=== PATIENT | female | born 1950 | race Asian ===

== ENCOUNTER 2017-09-26 20:12 | Inpatient (IN) | payer SELFPAY ==
[2017-09-26 21:03] LABS: #Eosinphils 0.4 thou/uL (0.0-0.7); #Lymphocytes 1.6 thou/uL (1.20-3.40); #Monocytes 0.4 thou/uL (0.11-0.59); #Neutrophils 5.9 thou/uL (1.40-6.50); %Basophils 0.6 % (0.0-1.0); %Eosinophils 4.3 % (0.0-10.0); %Lymphocytes 19.1 % (21.0-51.0); %Monocytes 4.5 % (0.0-10.0); %Neutrophils 71.5 % (42.0-75.0); Hemoglobin 9.9 g/dL (12.0-16.0); Mean Corpuscular HGB CONC 31.7 g/dL (32.0-36.0); Mean Corpuscular Hemoglobin 31.5 pg (27.0-31.0); Mean Corpuscular Volume 99.1 fl (81.0-99.0); Mean Platelet Volume 7.7 fL (7.4-10.4); Platelet Count 135 thou/uL (130-400); RBC Distribution Width 11.2 % (11.5-14.5); Red Blood Cell (RBC) Count 3.16 mill/uL (4.20-5.40); White Blood Cell (WBC) Count 8.2 thou/uL (4.8-10.8)
[2017-09-26] MEDS ORDERED: Albuterol Sulfate 2.5 mg/0.5 ml Neb ONE (21:12)
[2017-09-26 21:24] LABS: ALT (SGPT) 8 U/L (8-55); AST (SGOT) 9 U/L (5-34); Albumin 1.7 g/dL (3.4-4.8); Alkaline Phosphatase 29 U/L (40-150); Anion Gap 9 mmol/L (10-20); BUN (Urea Nitrogen) 9 mg/dL (9.8-20.1); Bilirubin, Total Less than 0.2 mg/dL (0.2-1.2); Calc. Creatinine Clearance 0 mL/min (70-130); Carbon Dioxide 13 mmol/L (23-31); Chloride 125 mmol/L (98-107); Estimated GFR-MDRD Greater than 90; Globulin 1.4 g/dL (2.4-3.5); Glucose 110 mg/dL (80-115); Protein, Total 3.1 g/dL (6.0-8.3); Sodium 145 mmol/L (136-145)
[2017-09-26 21:26] LABS: Calcium 4.4 mg/dL (7.8-10.44); Potassium 1.9 mmol/L (3.5-5.1)
[2017-09-26 21:28] LABS: CKMB 0.8 ng/mL (0-6.6); Troponin I Less than 0.010 ng/mL (< 0.028)
--- NOTE | 2017-09-26 21:33 | RAD ---
CHEST ONE VIEW 09/26/17 COMPARISON: 02/17/16 HISTORY: Wheezing. FINDINGS: Portable upright chest demonstrates a normal cardiac silhouette. Pulmonary vessels and hilum are norm al. Costophrenic angles are clear. Lungs are hyperinflated. There are chronic changes. No consolidati on or mass. No pneumothorax or osseous abnormalities. IMPRESSION: Hyperinflation with chronic changes. No acute process. POS: [facility]
[2017-09-26] MEDS ORDERED: Potassium Chloride 20 MEQ TAB ONE (21:39)
[2017-09-26 21:42] LABS: Magnesium 1.4 mg/dL (1.6-2.6)
[2017-09-26 21:44] LABS: Phosphorus 1.9 mg/dL (2.3-4.7)
[2017-09-26] MEDS ORDERED: Potassium Chloride 40 MEQ in Sodium Chloride 0.9% 500 ML IVPB SCH (21:45)
[2017-09-26] MEDS ORDERED: Albuterol Sulfate 1.25 MG/3 ML NEB ONE (21:59)
[2017-09-26] MEDS ORDERED: Sodium Chloride For Inhalation 0.9% 3 ML NEB ONE (22:00)
[2017-09-26 22:43] LABS: ALT (SGPT) 19 U/L (8-55); AST (SGOT) 18 U/L (5-34); Albumin 3.9 g/dL (3.4-4.8); Alkaline Phosphatase 62 U/L (40-150); Anion Gap 14 mmol/L (10-20); BUN (Urea Nitrogen) 13 mg/dL (9.8-20.1); Bilirubin, Total 0.3 mg/dL (0.2-1.2); Calc. Creatinine Clearance 0 mL/min (70-130); Calcium 8.4 mg/dL (7.8-10.44); Carbon Dioxide 24 mmol/L (23-31); Chloride 106 mmol/L (98-107); Estimated GFR-MDRD 77; Globulin 3.4 g/dL (2.4-3.5); Glucose 197 mg/dL (80-115); Magnesium 2.6 mg/dL (1.6-2.6); Phosphorus 3.1 mg/dL (2.3-4.7); Potassium 3.4 mmol/L (3.5-5.1); Protein, Total 7.3 g/dL (6.0-8.3); Sodium 141 mmol/L (136-145)
--- NOTE | 2017-09-26 23:41 | RAD ---
EXAM TWO VIEWS SOFT TISSUE NECK 09/26/17 HISTORY: Stridor. Asthma flare up. Inhaler is not working. COMPARISON: None. FINDINGS: No prevertebral soft tissue swelling. Epiglottis has a normal caliber. Aerodigestive tract is patent. There is mild fullness at the tongue base possibly due to lingual tonsillar hypertrophy. IMPRESSION: 1. Patient aerodigestive tract. 2. Normal caliber epiglottis. 3. No prevertebral soft tissue swelling. POS: [facility]
[2017-09-27] MEDS ORDERED: HYDROcodone/Acetaminophen 10/325 mg Tablet PO PRN (02:30)
[2017-09-27] MEDS ORDERED: Albuterol Sulfate 2.5 mg/3 ml Neb NEB PRN (02:30)
[2017-09-27] MEDS ORDERED: HYDROcodone/Acetaminophen 5/325 mg Tablet PO PRN (02:30)
[2017-09-27] MEDS ORDERED: Acetaminophen 325 MG TAB PO PRN (02:30)
[2017-09-27] MEDS ORDERED: Enoxaparin Sodium 40 MG/0.4 ML SYRINGE SC SCH (02:45)
[2017-09-27] MEDS: methylPREDNISolone Sod Succ/PF 125 MG/2 ML VIAL IVP SCH ×4 (02:50→20:57)
[2017-09-27 03:51] LABS: Actual Bicarbonate (HCO3a) 21.2 mEq/L (22-26); Base Excess (BEa) -8.3 mEq/L (0 (+/-) 2.5); Calcium, Ionized 1.2 mmol/L (1.12-1.30); Hemoglobin (Hb) 15.2 g/dL (12.0-16.0); O2 Tension (PaO2) 116.3 mmHg (80.0-100.0)
[2017-09-27 03:58] LABS: CO2 Tension 60.1 mmHg (35.0-45.0); pH, Arterial 7.17 (7.35-7.45)
[2017-09-27 03:59] LABS: ALV-art Gradient 74.235 (0-20); Puncture Site RRA
[2017-09-27 04:28] LABS: Actual Bicarbonate (HCO3a) 20.4 mEq/L (22-26); Base Excess (BEa) -7.9 mEq/L (0 (+/-) 2.5); CO2 Tension 52.3 mmHg (35.0-45.0); Calcium, Ionized 1.2 mmol/L (1.12-1.30); Hematocrit-ABG 49.4 % (36.0-47.0); Hemoglobin (Hb) 15.2 g/dL (12.0-16.0); O2 Tension (PaO2) 113.7 mmHg (80.0-100.0)
[2017-09-27 04:32] LABS: Puncture Site RRA; pH, Arterial 7.21 (7.35-7.45)
[2017-09-27 04:33] LABS: ALV-art Gradient 86.585 (0-20)
[2017-09-27] MEDS: Ondansetron HCl/PF 4 MG/2 ML Vial IVP PRN ×2 (04:39→10:44)
[2017-09-27 04:51] VITALS: BMI 19.5
--- NOTE | 2017-09-27 05:59 | HP ---
DATE OF ADMISSION: 09/26/2017 TIME OF SERVICE: 2145 hours. PRIMARY CARE PHYSICIAN: None. CHIEF COMPLAINT: Shortness of breath. HISTORY OF PRESENT ILLNESS: Ms. Reagan is a 67-year-old, female with acute onset of increased work of breathing and shortness of breath this afternoon. She had taken some albuterol inhaler at home, it was not helping, her left side of her chest felt tight. EMS was activated. On their arrival, it was 85% on room air. She got a 125 of Solu-Medrol, DuoNeb x3, 2 grams of magnesium and 0.3 of epinephrine en route. On arrival, she is still having significant respiratory sounds. Labs in the ER showed electrolytes to be completely abnormal, redraw of those showed that they were all be completely normal. We were called for admission for asthma exacerbation. On my arrival, the patient was audibly wheezing. Exam revealed upper respiratory high pitched wheezes on exploration with prolonged expiratory phase , with intermittent sounds down the lungs. She states she is swallowing okay. No fevers or chills, no nausea or vomiting. PAST MEDICAL HISTORY: 1. Asthma. 2. Heart problems, she cannot elucidate on. PAST SURGICAL HISTORY: Include appendectomy was done as a child. HOME MEDICATIONS: 1. Albuterol MDI. 2. Albuterol nebs as needed. ALLERGIES: NKDA. FAMILY HISTORY: Negative for clotting or bleeding disorders, no immune dysfunction. SOCIAL HISTORY: Negative for habits x3. She is . Her did accompany her. She is a FULL [employer] and he is her surrogate decision maker should there be any problems. REVIEW OF SYSTEMS: A 10-point review of systems was performed, negative for all other systems except stated as per HPI. PHYSICAL EXAMINATION: VITAL SIGNS: Temperature 97.7, pulse 130, blood pressure 142/102, respiratory rate 26, satting 97% on 2 liters, 100% on BiPAP 12/5. GENERAL: She is awake. She is alert. She is oriented x3. She is in moderate respiratory distress. HEENT: Normocephalic and atraumatic, no nasal flaring. Mucous membranes are moist. BiPAP mask is currently in place. NECK: Supple, without lymphadenopathy, JVD, or thyromegaly, she had normal carotid upstrokes. She does have an episode of her upper expiratory wheezes sound is in the throat. She has a prolonged expiratory phase and is using accessory muscles to . LUNGS: Themselves are clear with adequate air movement. Symmetric chest excursion. She has transmitted upper airway sounds down into her lung gibbs. I do not here any abnormal lung sounds of her own. CARDIOVASCULAR: She is tachycardic, regular. Normal S1, S2. I do not appreciate murmurs. ABDOMEN: Soft, it is nontender and nondistended, no masses, no organomegaly, no R/R/G. EXTREMITIES: No cyanosis, no clubbing, no edema, 2+ peripheral pulses. SKIN: Warm, moist, and well perfused without any rashes or lesions. MUSCULOSKELETAL: Exam was normal. She has no inflammation or palpable effusions. NEUROLOGIC: Nonfocal. She has 5/5 strength, normal speech pattern. Intact cranial nerves, and she is alert and oriented x3. LABORATORY EVALUATION: Initially showed a potassium of 1.9, bicarbonate 13, magnesium of 1.4, phosphorus 1.9, and albumin of 1.7. Repeat showed her labs to be completely normal except for potassium barely low at 3.4. Magnesium was 2.6, phosphorus 3.1. Creatinine 0.75. BNP was 22.3. Troponin I 0.010. Mag of 0.8. Her initial calcium of 4.4, redone was 8.9. CBC showed a white count of 8.2, hemoglobin 9.9, hematocrit 31.3, and platelet count of 135,000. Unsure if these are accurate or not. Chest x-ray showed hyperinflation with no acute disease. ASSESSMENT AND PLAN: 1. Stridor, suspect possible epiglottitis. We will get lateral neck film. The patient is currently on BiPAP and breathing much more comfortably. We will schedule racemic epinephrine nebs q.6 hours, DuoNebs q.4 hours and albuterol q.2 hours p.r.n. She got a 125 of Solu-Medrol on transport, we will continue 60 mg IV q.6 hours tonight, and we will decrease the dose tomorrow. I spoke with Dr. Hernandez of Pulmonary Critical Care as he is aware she is here. If she gets worse, then we may need to intubate. 2. History of asthma: Seems to be inactive at this point. Treatment will cover as above. 3. We will start her on Levaquin 750 mg IV q.24 hours and titrate oxygen to her needs. Electrolyte abnormalities on presentation deemed not real. Repeat draw showed them to be all normal. We will repeat in the morning. MTDD
[2017-09-27 06:10] LABS: Anion Gap 19 mmol/L (10-20); BUN (Urea Nitrogen) 13 mg/dL (9.8-20.1); Calc. Creatinine Clearance 51 mL/min (70-130); Calcium 8.8 mg/dL (7.8-10.44); Carbon Dioxide 21 mmol/L (23-31); Chloride 106 mmol/L (98-107); Estimated GFR-MDRD 68; Glucose 293 mg/dL (80-115); Magnesium 2.3 mg/dL (1.6-2.6); Potassium 4.9 mmol/L (3.5-5.1); Sodium 141 mmol/L (136-145)
[2017-09-27 06:28] LABS: CKMB 9.4 ng/mL (0-6.6); Troponin I 1.107 ng/mL (< 0.028)
[2017-09-27] MEDS ORDERED: FLU VACC TS2017-18 (>65YR) 0.5 ML SYRINGE IM ONE (09:00)
[2017-09-27] MEDS ORDERED: Famotidine/PF 20 mg/2ml Vial SLOW IVP SCH (09:00)
[2017-09-27] MEDS: Famotidine 40 MG/4 ML VIAL SLOW IVP SCH ×2 (10:46→20:57)
[2017-09-27] MEDS ORDERED: Midazolam HCl 2 mg/2 ml Vial ONE (12:49)
[2017-09-27] MEDS: Sodium Chloride 0.9% 1,000 ML IV SCH ×2 (13:05→22:50)
[2017-09-27] MEDS ORDERED: Propofol 1,000 MG/100 ML VIAL IV ONE (13:18)
[2017-09-27] MEDS ORDERED: Lorazepam 2 MG/ML VIAL ONE (13:22)
[2017-09-27 13:23] LABS: Hemoglobin 15.8 g/dL (12.0-16.0); Red Blood Cell (RBC) Count 5.23 mill/uL (4.20-5.40); White Blood Cell (WBC) Count 12.7 thou/uL (4.8-10.8)
[2017-09-27 13:24] LABS: #Lymphocytes 0.8 thou/uL (1.20-3.40); #Monocytes 0.2 thou/uL (0.11-0.59); #Neutrophils 11.7 thou/uL (1.40-6.50); %Basophils 0.1 % (0.0-1.0); %Eosinophils 0.1 % (0.0-10.0); %Lymphocytes 6.1 % (21.0-51.0); %Monocytes 1.6 % (0.0-10.0); Mean Corpuscular HGB CONC 30.5 g/dL (32.0-36.0); Mean Corpuscular Hemoglobin 30.2 pg (27.0-31.0); Mean Corpuscular Volume 99.1 fL (81.0-99.0); Platelet Count 221 thou/uL (130-400); RBC Distribution Width 11.6 % (11.5-14.5)
[2017-09-27 14:27] LABS: Actual Bicarbonate (HCO3a) 19.7 mEq/L (22-26); Base Excess (BEa) -6.8 mEq/L (0 (+/-) 2.5); CO2 Tension 42.8 mmHg (35.0-45.0); Calcium, Ionized 1.2 mmol/L (1.12-1.30); Hematocrit-ABG 44.5 % (36.0-47.0); Hemoglobin (Hb) 14.2 g/dL (12.0-16.0); O2 Tension (PaO2) 123.5 mmHg (80.0-100.0); pH, Arterial 7.28 (7.35-7.45)
[2017-09-27 14:28] LABS: Puncture Site RRA
[2017-09-27] MEDS: Sodium Chloride 0.9% 2,000 ML IV SCH ×2 (15:25→16:28)
--- NOTE | 2017-09-27 18:51 | PRG ---
DATE OF SERVICE: 09/27/2017 SUBJECTIVE: The patient is seen and examined at the bedside. She is in CCU C12 bed. She is intubat ed and sedated. OBJECTIVE: VITAL SIGNS: Blood pressure is 93/65. MAP is 75, heart rate is 109, respiratory rate is 17, O2 satu ration 95%. She is on FIO2 of 35. Blood pressure is 137/82, pulse is 128, PEEP is 5, pressure suppo rt is 10, frequency is 14. HEENT: Her pupils are responding to light properly, slightly sluggish. Conjunctivae pinkish. She i s orally intubated. LUNGS: Somewhat diminished at both bases. No obvious wheezing. HEART: S1, S2, tachycardic, no S3, no S4. ABDOMEN: Soft, nondistended. EXTREMITIES: No clubbing, cyanosis, or edema. NEUROLOGIC: Postponed since she is sedated. LABORATORY DATA: Showed a white count of 12.7, hemoglobin 15.8, hematocrit 51.8, platelet count is 2 21,000. ABG: pH is 7.21, pCO2 of 52.3, pO2 is 113.7. The next ABGs showed improvement with pH of 7 .28, pO2 of 123.5 and pCO2 of 42.8. Sodium is 141, potassium 4.9, chloride 106, CO2 of 21, BUN is 13 , glucose is 293, magnesium 2.3. CK is 9.4. Troponin I 1.107. Chest x-ray was done yesterday shows hyperinflation with chronic changes, no acute abnormality and the soft tissue of the neck x-ray show ed normal caliber epiglottitis. No prevertebral soft tissue swelling. Her aerodigestive tract was p atent. IMPRESSION: 1. Hypoxemic respiratory failure. 2. History of asthma. It is not clear whether there is some infectious process going on in her lung s which triggered her hypoxemia and hypercapnia and respiratory failure, most likely there is one. T he patient is on a methylprednisolone 60 mg q.6 h. IV push. Also she is on levofloxacin 750 mg q.24 hours. We will continue both of them. The patient was seen by Dr. Waller, Pulmonary/Critical Care sp ecialist. We are awaiting for his recommendations. We will continue her on mechanical ventilation. We will continue her deep venous thrombosis and peptic ulcer disease prophylaxis.
[2017-09-27] MEDS ORDERED: Famotidine 40 MG/4 ML VIAL SLOW IVP SCH (21:00)
[2017-09-27] MEDS ORDERED: Benzocaine 20% Spray 60 ML CAN ONE (21:05)
[2017-09-27] MEDS ORDERED: Sedation Protocol FS ONE (21:52)
[2017-09-27] MEDS ORDERED: Morphine 2 MG/ML SYRINGE SLOW IVP PRN (21:56)
[2017-09-27] MEDS ORDERED: Lorazepam 2 MG/ML VIAL SLOW IVP PRN (21:56)
[2017-09-27] MEDS ORDERED: DISCONTINUE PREVIOUS NARCOTIC PAIN MEDICATIONS AND BENZODIAZEPINES FS SCH (21:56)
[2017-09-27] MEDS ORDERED: Magnesium Sulfate 3 GM in Sodium Chloride 0.9% 100 ML IVPB SCH (22:00)
[2017-09-28] MEDS: methylPREDNISolone Sod Succ/PF 125 MG/2 ML VIAL IVP SCH ×4 (03:52→21:20)
--- NOTE | 2017-09-28 05:44 | CON ---
DATE OF CONSULTATION: 09/27/2017 HISTORY OF PRESENT ILLNESS: Ms. Reagan is known to me. She has a history of severe asthma. She has been intubated in the past. She presented with respiratory distress, was unable to speak and was showing signs of fatigue on BiPAP, I was consulted. She is unable to give much of her history because of respiratory distress. PAST MEDICAL HISTORY: 1. Remarkable for an appendectomy. 2. I believe intubation by me in 2013. 3. Long history of asthma with history of ventilation 2009 and in 2013. 4. History of takotsubo cardiomyopathy. 5. History of obstructive lung disease reportedly, but I believe more what she has been is asthma al carlitos. 6. History of medical noncompliance in the distant past because lack of funds. SOCIAL HISTORY: She is a non-smoker, nondrinker. ALLERGIES: No history of drug use. ALLERGIES: She has no reported drug allergies. FAMILY HISTORY: Negative for lung disease in early age. REVIEW OF SYSTEMS: Otherwise, unremarkable other than the above, shortness of breath as her only com plaint and that is all she can really say. PHYSICAL EXAMINATION: VITAL SIGNS: Heart rate was 114, blood pressure 101/70, respiratory rate was in the teens. She is o n noninvasive, oximetry is 98. HEENT: Pupils are equal. Sclerae is anicteric. NECK: Supple. She nodded that she was agreeable to intubation. LUNGS: Remarkable for distant breath sounds, long expiratory phase. HEART: Regular rhythm, no S3. ABDOMEN: Soft. EXTREMITIES: With asymmetry. LABORATORY DATA: White count 12.7, hemoglobin 15.8, hematocrit 51, platelets 221. Sodium 141, potassium 4.9, chloride 106, bicarbonate 21, BUN 13, creatinine 0.84, glucose 293. IMPRESSION: 1. Respiratory failure and pending. 2. Status asthmaticus severe. 3. Muscle fatigue. 4. Hypoalbuminemia, it is unclear whether or not this is actually artifactual because her albumin ye evening was 1.7 and then an hour later it was 3.9. Her total protein was 3.1 and went on rep eat was 7.3, making me believe that this was drawn up stream from an IV. Her potassium was also 1.9 and went to 3.4 an hour later. Chloride was 125 and went to 106. All these things argue that the bl ood was drawn above on IV. She eventually needs intubation, she agreed to this and this has been don e successfully. The intubation will be dictated in a separate report. She will require sedation, IV fluids, and she is, in my estimation, extremely still volume contracted, this will help facilitate m ucociliary clearance as well. She will need steroids. She will need IV magnesium, I would agree wit h empiric antimicrobial therapy, although I would try to keep it limited to 1 antimicrobial agents an d she has no alveolar infiltrates on her radiograph. Her radiographs have been reviewed by me. I wi ll continue to follow her. Critical care time 30 minutes independent of procedures.
--- NOTE | 2017-09-28 06:18 | OP ---
DATE: 09/27/2017 PROCEDURE: Fiberoptic intubation with bronchoscopy. CLEANING SUPERVISOR: Adelso Waller M.D. INDICATION: Respiratory failure, to facilitate clearance of secretions. She had a bite block placed in her mouth. Throat was sprayed with Hurricaine [place]. Versed was at [facility] bedside, to be used once she was intubated, She was easily intubated using a fiberoptic scope. [facility] bronchoscope showed normal cords. Her trachea was normal except for retained thick white secretio ns. Endotracheal tube was secured above her main nelia, 7.5. Right lower lobe, right upper lobe, r ight middle lobe, left lower lobe, left upper lobe were visualized. No endobronchial lesions were se en. Retained clear white secretions were suctioned until clear. She tolerated the procedure well. There was no hypoxemia or vital sign changes during intubation.
[2017-09-28] MEDS: Propofol 1,000 MG/100 ML VIAL IV PRN ×2 (07:21→16:44)
[2017-09-28 07:25] LABS: Actual Bicarbonate (HCO3a) 24.5 mEq/L (22-26); Base Excess (BEa) -1.5 mEq/L (0 (+/-) 2.5); CO2 Tension 46.4 mmHg (35.0-45.0); Calcium, Ionized 1.2 mmol/L (1.12-1.30); Hematocrit-ABG 35.2 % (36.0-47.0); Hemoglobin (Hb) 11.5 g/dL (12.0-16.0); O2 Tension (PaO2) 115.6 mmHg (80.0-100.0); pH, Arterial 7.34 (7.35-7.45)
[2017-09-28 07:32] LABS: Puncture Site RRA
[2017-09-28 07:51] LABS: #Lymphocytes 1.2 thou/uL (1.20-3.40); #Monocytes 0.6 thou/uL (0.11-0.59); %Basophils 0.1 % (0.0-1.0); %Eosinophils 0.1 % (0.0-10.0); %Lymphocytes 7.8 % (21.0-51.0); %Monocytes 4.3 % (0.0-10.0); %Neutrophils 87.8 % (42.0-75.0); Mean Corpuscular HGB CONC 31.2 g/dL (32.0-36.0); Mean Corpuscular Hemoglobin 30.7 pg (27.0-31.0); Mean Corpuscular Volume 98.5 fl (81.0-99.0); Mean Platelet Volume 7.8 fL (7.4-10.4); Platelet Count 171 thou/uL (130-400); RBC Distribution Width 11.5 % (11.5-14.5); Red Blood Cell (RBC) Count 4.22 mill/uL (4.20-5.40); White Blood Cell (WBC) Count 14.8 thou/uL (4.8-10.8)
[2017-09-28 08:08] LABS: Anion Gap 10 mmol/L (10-20); BUN (Urea Nitrogen) 18 mg/dL (9.8-20.1); Calc. Creatinine Clearance 61 mL/min (70-130); Calcium 8.2 mg/dL (7.8-10.44); Carbon Dioxide 24 mmol/L (23-31); Chloride 111 mmol/L (98-107); Estimated GFR-MDRD 83; Glucose 161 mg/dL (80-115); Potassium 4.4 mmol/L (3.5-5.1); Sodium 141 mmol/L (136-145)
--- NOTE | 2017-09-28 08:33 | RAD ---
CHEST ONE VIEW: History: 67-year-old female with respiratory failure. Comparison: 09-26-17 FINDINGS: NG tube and endotracheal tubes remain in satisfactory location. There is some hyperinflation and continuous improvement director cristina changes noted bilaterally with biapical pleural thickening without confluent pneumonia, overt franck ma, or other acute process. IMPRESSION: Stable chronic changes. POS: [facility]
[2017-09-28] MEDS: Famotidine 40 MG/4 ML VIAL SLOW IVP SCH ×2 (08:53→21:57)
[2017-09-28] MEDS: Enoxaparin Sodium 40 MG/0.4 ML SYRINGE SC SCH (08:54)
[2017-09-28] MEDS: Sodium Chloride 0.9% 1,000 ML IV SCH ×2 (08:58→18:34)
--- NOTE | 2017-09-28 12:49 | PRG ---
DATE OF SERVICE: 09/28/2017 SUBJECTIVE: Ms. Reagan appears to be comfortable, mechanically ventilated. OBJECTIVE: VITAL SIGNS: She is afebrile, heart rate 120, blood pressure 95/53, respiratory rate in the teens. She still has a very long expiratory phase. HEART: Regular rhythm. ABDOMEN: Soft. LABORATORY DATA: White count 14.8, hemoglobin 13, platelets 171. Sodium 141, potassium 4.4, chloride 111, bicarbonate 24, BUN 18, creatinine 0.7, pH 7.34, CO2 46, pO2 115. IMPRESSION: Respiratory failure associated with status asthmaticus. PLAN: She failed noninvasive ventilation and was intubated by me yesterday. She appears to be stabl e. She still has a resting tachycardia and a long expiratory phase, all linked to her asthma. We wi ll continue to treat her aggressively with nebulizer treatments, steroids, IV hydration. Critical care time was 30 minutes.
[2017-09-28] MEDS: Ondansetron HCl/PF 4 MG/2 ML Vial IVP PRN (18:31)
--- NOTE | 2017-09-28 20:30 | PRG ---
DATE OF SERVICE: 09/28/2017 SUBJECTIVE: The patient is seen and examined at bedside. She is sedated and intubated. She is seen in CCU bed 12. OBJECTIVE: VITAL SIGNS: Her blood pressure is 96/58, pulse is 98, respiratory rate is 17, and pulse oximetry is 95%. The ventilator setting is SIMV with frequency of 14, tidal volume 330, FiO2 of 35%, PEEP of 5. 0, pressure support of 10. She has a Koch catheter in place. Her urine output total for 24 hours i s 1300, intake is 3714, so balance is positive for 2414. LUNGS: Her lungs sound without any significant wheezing or rales. HEART: S1, S2 normal. ABDOMEN: Soft, nondistended. EXTREMITIES: No clubbing, cyanosis, or edema. NEUROLOGIC: Not done since the patient is under influence of sedative. LABORATORY DATA: Labs showed white count of 14.8, hemoglobin 13, hematocrit 41.6, and platelet count is 171. Blood gases showed pH of 7.34, pCO2 of 46, and pO2 of 115.6. Sodium of 141, potassium 4.4, chloride 111, CO2 is 24, BUN is 18, creatinine 0.7. Glucose is ranging from 161 to 293. Her tropon in is up to 1.1 from less than 0.01. CK-MB is up to 9.4 from 9.8. The rest of chemistry showed a ma gnesium of 2.3. Chest x-ray did not show any acute new process. She has some chronic biapical pleur al thickening without confluent pneumonia. Those are chronic changes. IMPRESSION: 1. Status asthmaticus, status post intubation and she is receiving mechanical ventilation. 2. Hypoxemic respiratory failure secondary to status asthmaticus. PLAN: To continue her IV steroids; IV nebulizers; and IV antibiotic, which is levofloxacin. Continu e DuoNeb and continue supportive care in critical care unit.
[2017-09-29] MEDS: methylPREDNISolone Sod Succ/PF 125 MG/2 ML VIAL IVP SCH ×4 (03:53→21:27)
[2017-09-29] MEDS: Sodium Chloride 0.9% 1,000 ML IV SCH (08:07)
[2017-09-29] MEDS: Enoxaparin Sodium 40 MG/0.4 ML SYRINGE SC SCH (08:22)
[2017-09-29] MEDS: Famotidine 40 MG/4 ML VIAL SLOW IVP SCH (08:28)
[2017-09-29] MEDS: Propofol 1,000 MG/100 ML VIAL IV PRN (08:32)
[2017-09-29 13:43] LABS: Troponin I 0.458 ng/mL (< 0.028)
[2017-09-29] MEDS ORDERED: Pancrelipase DR 12000 1 CAP FS PRN (13:59)
[2017-09-29] MEDS ORDERED: Sodium Bicarbonate Tab 325 MG TAB PER TUBE PRN (13:59)
--- NOTE | 2017-09-29 14:02 | PRG ---
DATE OF SERVICE: 09/29/2017 SERVICE: Pulmonary Medicine. INTERVAL HISTORY: The patient is doing really well from a respiratory standpoint. She continues to demonstrate fairly significant expiratory airflow limitation. That being said, she has made a marked improvement compared to yesterday. She indicates she is breathing comfortably. She denies any curr ent fevers or chills. She has fairly significant secretions, but demonstrates a very vigorous cough. HEENT: Normocephalic, atraumatic. Sclerae are white, conjunctivae pink. Oral mucosa is moist witho ut lesions. LUNGS: Excellent air entry. There is a prolonged expiratory phase and polyphonic wheezing. Rhonchi are present, but changed with cough. HEART: Tachycardic, regular. ABDOMEN: Soft, nontender, nondistended. Bowel sounds are positive. MUSCULOSKELETAL: No cyanosis or clubbing. No pitting in the bilateral lower extremities. NEUROLOGIC: Grossly nonfocal. LABORATORY DATA: WBC 14.8, hemoglobin 13.0, platelets 171,000. A pH 7.34, pCO2 46, and pO2 115. Ba sic metabolic profile is essentially unremarkable. Sodium 141, chloride 111. Creatinine is normal a t 0.7. Troponin is up trending to 1.107. ASSESSMENT: 1. Acute hypoxic and hypercapnic respiratory failure. 2. Asthma with acute exacerbation. 3. Unknown heart issues. PLAN: We will repeat a troponin. If the troponin is up trending, Cardiology consultation will be ob tained. We will put on a spontaneous breathing trial just to see how she looks after 30 minutes. If she looks fantastic, extubation will be considered, but more than likely, she will be maintained on mechanical ventilation for the next 24 hours. She continues to have a very extensive prolonged expir atory phase.
--- NOTE | 2017-09-29 18:17 | PRG ---
DATE OF SERVICE: 09/29/2017 SUBJECTIVE: The patient was seen and examined at the bedside. She is still intubated. Her family i s at the bedside. Apparently, she might be extubated tomorrow, she was told. PHYSICAL EXAMINATION: VITAL SIGNS: Blood pressure is 90/57, pulse is 108, respiratory rate is 14, pulse oximetry is 93%. She is on a ventilator as mentioned above. HEENT: Eyes are PERRLA. LUNGS: Bilateral wheezes present upper and lower parts, both lungs. HEART: S1, S2. Somewhat tachycardic. No S3, no S4. ABDOMEN: Soft and nontender. Bowel sounds are present. EXTREMITIES: No clubbing, cyanosis, or edema. NEUROLOGIC: She follows my command. She understands. She is able to move all 4 extremities. There are no focal deficits at present. LABORATORY DATA: None today. IMPRESSION: 1. Acute respiratory failure. 2. Exacerbation of asthma, requiring intubation. PLAN: To continue current regimen with mechanical ventilation with IV steroids, high dose; and Luís buchanan and most likely she would be extubated tomorrow.
[2017-09-29] MEDS: Famotidine/PF 20 mg/2ml Vial SLOW IVP SCH (21:27)
[2017-09-30] MEDS: methylPREDNISolone Sod Succ/PF 125 MG/2 ML VIAL IVP SCH ×2 (04:36→09:46)
[2017-09-30] MEDS: Propofol 1,000 MG/100 ML VIAL IV PRN (09:46)
[2017-09-30] MEDS: Famotidine/PF 20 mg/2ml Vial SLOW IVP SCH (09:46)
[2017-09-30] MEDS: Enoxaparin Sodium 40 MG/0.4 ML SYRINGE SC SCH (09:46)
--- NOTE | 2017-09-30 12:33 | PRG ---
DATE OF SERVICE: 09/30/2017 SERVICE: Pulmonary Medicine. INTERVAL HISTORY: The patient is doing really quite well from a respiratory standpoint. She is ronald thing comfortably. She has no current fevers, chills, nausea, vomiting, or chest discomfort. She is currently on mechanical ventilation and her expiratory airflow limitation has significantly improved . She denies any current fevers or chills. PHYSICAL EXAMINATION: VITAL SIGNS: Afebrile, pulse 105, blood pressure 65/57, respirations 18, saturation 92% on room air. GENERAL: Patient is awake, alert, in no apparent distress. LUNGS: Excellent air entry. There is a prolonged expiratory phase, but the wheezing and crackles ar e much improved. HEART: Normal rate, regular. ABDOMEN: Soft, nontender, nondistended. Bowel sounds are positive. MUSCULOSKELETAL: No cyanosis or clubbing. No pitting in the bilateral lower extremities. GENITOURINARY: Koch catheter in place. NEUROLOGIC: Grossly nonfocal. LABORATORY DATA: Basic metabolic profile is completely unremarkable. Troponin is down trending 0.45 . ASSESSMENT: 1. Acute hypoxic and hypercapnic respiratory failure. 2. Status asthmaticus, improving. 3. Heart issues. 4. Non-ST elevation myocardial infarction. PLAN: We will continue on spontaneous breathing trial. We are going to proceed with extubation if s he meets criteria at the end of 30 minutes. I will check on her multiple times in this period of mi e. Critical care time: 30 minutes.
--- NOTE | 2017-09-30 16:29 | PDOC.PN ---
- Subjective Encounter Start Date: 09/30/17 Encounter Start Time: 11:40 Pt seen for followup re: acute respiratory failure. Nonverbal but answering questions by nodding or shaking head. Denies chest pain, shortness of breath. - Objective Resuscitation Status: Resuscitation Status FULL:Full Resuscitation MAR Reviewed: Yes Vital Signs & Weight: Vital Signs (12 hours) Temp Pulse Resp BP Pulse Ox 09/30/17 15:20 109 H 21 H 96 09/30/17 12:00 98.3 F 16 09/30/17 11:57 105 H 96/57 L 09/30/17 10:00 16 09/30/17 08:08 107 H 86/56 L 09/30/17 08:00 98.2 F 105 H 14 96 09/30/17 07:00 98.2 F Weight Admit Weight 110 lb Weight 110 lb Most Recent Monitor Data Heart Rate from ECG 107 NIBP 104/63 NIBP BP-Mean 77 Respiration from ECG 14 SpO2 96 I&O: 09/29/17 09/30/17 10/01/17 06:59 06:59 06:59 Intake Total 2585.6 634 361 Output Total 990 1045 390 Balance 1595.6 -411 -29 Result Diagrams: 09/28/17 07:39 09/28/17 07:39 EKG Reviewed by me: Yes (Tele: NSR) Phys Exam - Physical Examination Constitutional: NAD ETT+ Neck: supple Respiratory: clear to auscultation bilateral Cardiovascular: RRR Gastrointestinal: soft Neurological: moves all 4 limbs Psychiatric: normal affect Dx/Plan (1) Acute respiratory failure Code(s): J96.00 - ACUTE RESPIRATORY FAILURE, UNSP W HYPOXIA OR HYPERCAPNIA Status: Acute (2) Elevated troponin Code(s): R74.8 - ABNORMAL LEVELS OF OTHER SERUM ENZYMES Status: Acute (3) Asthma Code(s): J45.909 - UNSPECIFIED ASTHMA, UNCOMPLICATED Status: Chronic - Plan * . Continue steroids, bronchodilators. On spontaneous breathing trial. Demand ischemia vs NSTEMI. Follow 2D echo result. If significant abnormalities, consult cardiology. Review of Systems - Review of Systems Respiratory: negative: Cough, Dry, Shortness of Breath, Hemoptysis, SOB with Excertion, Pleuritic Pain, Sputum, Wheezing Cardiovascular: negative: chest pain, palpitations, orthopnea, paroxysmal nocturnal dyspnea, edema, light headedness - Medications/Allergies Allergies/Adverse Reactions: Allergies Allergy/AdvReac Type Severity Reaction Status Date / Time No Known Allergies Allergy Verified 09/27/17 05:05 Medications: Current Medications Acetaminophen (Tylenol) 650 mg PO Q4H PRN PRN Reason: Headache/Fever or Pain Albuterol Sulfate (Ventolin) 2.5 mg NEB Q2H PRN PRN Reason: Wheezing Albuterol/Ipratropium (Duoneb) 3 ml NEB [id number] [facility] Last Admin: 09/30/17 15:20 Dose: 3 ml Lipase/Protease/Amylase ([place] [id number]) 1 cap FS .PER PROTOCOL PRN PRN Reason: TUBE OCCLUSION PROTOCOL Enoxaparin Sodium (Lovenox) 40 mg SC 0900 [facility] Last Admin: 09/30/17 09:46 Dose: 40 mg Levofloxacin 750 mg/ Device 150 mls @ 100 mls/hr IVPB 0300 [facility] Last Admin: 09/30/17 04:36 Dose: 150 mls Methylprednisolone Sodium Succinate (Solu-Medrol) 60 mg IVP DAILY [facility] Discontinue Previous Narcotic Pain Medications And Benzodiazepines 1 each FS .ONE [facility] Stop: 10/27/17 21:56 Ondansetron HCl (Zofran) 4 mg IVP Q6H PRN PRN Reason: Nausea/Vomiting Last Admin: 09/28/17 18:31 Dose: 4 mg Sodium Bicarbonate (Bicarbonate, Sodium) 650 mg PER TUBE .PER PROTOCOL PRN PRN Reason: ENTERAL TUBE OCCLUSION
[2017-10-01 08:33] LABS: Hemoglobin 13.6 g/dL (12.0-16.0); Mean Corpuscular HGB CONC 32.5 g/dL (32.0-36.0); Mean Corpuscular Hemoglobin 31.6 pg (27.0-31.0); Mean Corpuscular Volume 97.1 fl (81.0-99.0); Mean Platelet Volume 9.2 fL (7.4-10.4); Platelet Count 178 thou/uL (130-400); RBC Distribution Width 11.8 % (11.5-14.5); White Blood Cell (WBC) Count 11.3 thou/uL (4.8-10.8)
[2017-10-01] MEDS ORDERED: methylPREDNISolone Sod Succ/PF 125 MG/2 ML VIAL IVP SCH (09:00)
[2017-10-01 09:14] LABS: Anion Gap 12 mmol/L (10-20); BUN (Urea Nitrogen) 24 mg/dL (9.8-20.1); Calc. Creatinine Clearance 66 mL/min (70-130); Calcium 8.8 mg/dL (7.8-10.44); Carbon Dioxide 32 mmol/L (23-31); Chloride 107 mmol/L (98-107); Estimated GFR-MDRD Greater than 90; Glucose 113 mg/dL (80-115); Magnesium 2.3 mg/dL (1.6-2.6); Phosphorus 2.4 mg/dL (2.3-4.7); Potassium 4.1 mmol/L (3.5-5.1); Sodium 147 mmol/L (136-145)
[2017-10-01 09:33] LABS: Band 9 % (5-11); Lymphocytes 14 % (21-51); MDiff Complete? YES; Monocytes 4 % (0-10); Neutrophil 72 % (42-75); RBC Morphology Normal; Reactive Lymphocytes 1 % (0-10)
[2017-10-01] MEDS: Enoxaparin Sodium 40 MG/0.4 ML SYRINGE SC SCH (09:35)
--- NOTE | 2017-10-01 12:17 | PDOC.PN ---
- Subjective Encounter Start Date: 10/01/17 Encounter Start Time: 12:16 Subjective: still on bipap, still tachypneic - Objective Resuscitation Status: Resuscitation Status FULL:Full Resuscitation MAR Reviewed: Yes Vital Signs & Weight: Vital Signs (12 hours) Temp Pulse Resp Pulse Ox 10/01/17 11:48 98 17 99 10/01/17 11:00 98.2 F 10/01/17 08:00 98.0 F 109 H 20 99 10/01/17 06:33 90 14 99 10/01/17 04:00 98.2 F 10/01/17 03:15 87 10/01/17 03:14 86 16 96 Weight Admit Weight 110 lb Weight 110 lb Most Recent Monitor Data Heart Rate from ECG 95 NIBP 140/81 NIBP BP-Mean 97 Respiration from ECG 17 SpO2 100 I&O: 09/30/17 10/01/17 10/02/17 06:59 06:59 06:59 Intake Total 634 661 100 Output Total 1045 1030 255 Balance -411 369 -155 Result Diagrams: 10/01/17 08:20 10/01/17 08:20 Phys Exam - Physical Examination Constitutional: NAD Neck: no JVD diffuse wheezes, still tight Cardiovascular: RRR, no significant murmur Gastrointestinal: soft, non-tender, positive bowel sounds Musculoskeletal: no edema Dx/Plan (1) Acute respiratory failure with hypoxia and hypercapnia Code(s): J96.01 - ACUTE RESPIRATORY FAILURE WITH HYPOXIA; J96.02 - ACUTE RESPIRATORY FAILURE WITH HYPERCAPNIA Status: Acute (2) Status asthmaticus Code(s): J45.902 - UNSPECIFIED ASTHMA WITH STATUS ASTHMATICUS Status: Acute Qualifiers: Asthma severity: severe Asthma persistence: persistent Qualified Code(s) : J45.52 - Severe persistent asthma with status asthmaticus (3) NSTEMI (non-ST elevated myocardial infarction) Code(s): I21.4 - NON-ST ELEVATION (NSTEMI) MYOCARDIAL INFARCTION Status: Acute - Plan cont agressive iv steroids, antibx, nebs -: discuss with molder closed molds * .
[2017-10-01] MEDS ORDERED: Magnesium 2 GM/NS 0.9% 50 ML 2 GM in Premix Bag 1 BAG IVPB SCH (12:45)
[2017-10-01] MEDS ORDERED: Magnesium 2 GM/NS 0.9% 100 ML 2 GM in Premix Bag 1 BAG IVPB SCH (13:15)
--- NOTE | 2017-10-01 15:03 | PRG ---
DATE OF SERVICE: 10/01/2017 SUBJECTIVE: A 67-year-old female status post intubation for acute respiratory failure, improved DE, chronic asthma. Today, she is feeling better, but still coughing and wheezing. OBJECTIVE: VITAL SIGNS: Pulse is 101, blood pressure 154/97, sats 100%, respirations 18. I's & O's have been 6 61 in and 1030 out. CHEST: Reveals diffuse wheezing, prolonged expiration. CARDIAC: Normal S1 and S2. ABDOMEN: Soft. No masses. IMAGING DATA: X-ray was normal. White count 11,000 with left shift. IMPRESSION: Chronic asthma exacerbation. PLAN: Continue steroids and nebulizer treatments. I have given magnesium. Try and get out of the BiPAP as soon as possible. When she is stable, outpatient PFT. We will follow. One-half hour critical care time.
[2017-10-01] MEDS: Mometasone/Formoterol 120 PUFF INHALER INH SCH (20:17)
[2017-10-02 05:13] LABS: Anion Gap 9 mmol/L (10-20); BUN (Urea Nitrogen) 18 mg/dL (9.8-20.1); Calc. Creatinine Clearance 73 mL/min (70-130); Calcium 8.8 mg/dL (7.8-10.44); Carbon Dioxide 35 mmol/L (23-31); Chloride 100 mmol/L (98-107); Estimated GFR-MDRD Greater than 90; Glucose 133 mg/dL (80-115); Magnesium 2.2 mg/dL (1.6-2.6); Phosphorus 3.8 mg/dL (2.3-4.7); Potassium 4.2 mmol/L (3.5-5.1); Sodium 140 mmol/L (136-145)
[2017-10-02 05:37] LABS: Band 8 % (5-11); Hemoglobin 13.7 g/dL (12.0-16.0); Lymphocytes 7 % (21-51); MDiff Complete? YES; Mean Corpuscular HGB CONC 31.5 g/dL (32.0-36.0); Mean Corpuscular Hemoglobin 30.5 pg (27.0-31.0); Mean Corpuscular Volume 96.8 fl (81.0-99.0); Mean Platelet Volume 7.8 fL (7.4-10.4); Monocytes 5 % (0-10); Neutrophil 80 % (42-75); Platelet Count 162 thou/uL (130-400); RBC Distribution Width 11.6 % (11.5-14.5); White Blood Cell (WBC) Count 12.8 thou/uL (4.8-10.8)
[2017-10-02] MEDS: Mometasone/Formoterol 120 PUFF INHALER INH SCH ×2 (07:25→19:31)
[2017-10-02] MEDS ORDERED: Sterile Water 10 ML ONE (08:22)
[2017-10-02] MEDS: Enoxaparin Sodium 40 MG/0.4 ML SYRINGE SC SCH (08:50)
[2017-10-02 09:21] LABS: Troponin I 0.126 ng/mL (< 0.028)
--- NOTE | 2017-10-02 09:29 | PDOC.PN ---
- Subjective Encounter Start Date: 10/02/17 Encounter Start Time: 09:27 Subjective: off BIPAP, vague L chest pain - Objective Resuscitation Status: Resuscitation Status FULL:Full Resuscitation MAR Reviewed: Yes Vital Signs & Weight: Vital Signs (12 hours) Temp Pulse Resp Pulse Ox 10/02/17 07:25 96 10/02/17 07:21 100 18 96 10/02/17 04:00 98.2 F 10/02/17 03:39 97 10/02/17 00:00 98.4 F 10/01/17 23:27 97 10/01/17 23:19 98 Weight Admit Weight 110 lb Weight 110 lb Most Recent Monitor Data Heart Rate from ECG 97 NIBP 100/61 NIBP BP-Mean 74 Respiration from ECG 20 SpO2 94 I&O: 10/01/17 10/02/17 10/03/17 06:59 06:59 06:59 Intake Total 661 1418 Output Total 1030 2535 Balance -369 -0330 Result Diagrams: 10/02/17 04:00 10/02/17 04:00 EKG Reviewed by me: Yes (RSR, inverted T wave V2) Phys Exam - Physical Examination Constitutional: NAD Neck: no JVD wheezes all gibbs Cardiovascular: RRR, no significant murmur Gastrointestinal: soft, non-tender, positive bowel sounds Musculoskeletal: no edema Dx/Plan (1) Acute respiratory failure with hypoxia and hypercapnia Code(s): J96.01 - ACUTE RESPIRATORY FAILURE WITH HYPOXIA; J96.02 - ACUTE RESPIRATORY FAILURE WITH HYPERCAPNIA Status: Acute (2) Status asthmaticus Code(s): J45.902 - UNSPECIFIED ASTHMA WITH STATUS ASTHMATICUS Status: Acute Qualifiers: Asthma severity: severe Asthma persistence: persistent Qualified Code(s) : J45.52 - Severe persistent asthma with status asthmaticus (3) NSTEMI (non-ST elevated myocardial infarction) Code(s): I21.4 - NON-ST ELEVATION (NSTEMI) MYOCARDIAL INFARCTION Status: Acute (4) Chest pain Code(s): R07.9 - CHEST PAIN, UNSPECIFIED Status: Acute - Plan cont agressive resp tx with nebs, steroids, O2, etc -: consult card for chest pain, abn trop, EKG * .
--- NOTE | 2017-10-02 09:34 | PDOC.EVN ---
Event Note - Event Note Event Note: ADD ASA, protonix IV
--- NOTE | 2017-10-02 10:10 | PRG ---
DATE OF SERVICE: 10/02/2017 The patient is better this morning. She has come in with chest pain. Input from Cardiology waiting. PHYSICAL EXAMINATION: VITAL SIGNS: Sats are 92 on 2 liters, pulse 100, blood pressure 101/61. CHEST: Chest revealed occasional wheeze. CARDIAC: Normal S1-S2. No gallops. ABDOMEN: Soft. No masses. LABORATORY: White count 12,000, H&H 13 and 43, platelet count 162. Electrolytes are normal. IMPRESSION: 1. Asthma exacerbation. 2. Chest pain. There is no evidence of any pneumonia. I am going to deescalate the antibiotics. Continue neb treat ments, steroids. If it is okay with Cardiology she can be transferred out of the ICU.
[2017-10-02] MEDS: Pantoprazole 40 MG VIAL IVP SCH (12:05)
[2017-10-02] MEDS: Aspirin 325 MG TAB PO SCH (12:06)
[2017-10-03 05:37] LABS: #Lymphocytes 0.9 thou/uL (1.20-3.40); #Monocytes 0.4 thou/uL (0.11-0.59); #Neutrophils 9.3 thou/uL (1.40-6.50); %Eosinophils 0.2 % (0.0-10.0); %Lymphocytes 8.8 % (21.0-51.0); %Monocytes 3.6 % (0.0-10.0); %Neutrophils 87.4 % (42.0-75.0); Hemoglobin 14.2 g/dL (12.0-16.0); Mean Corpuscular HGB CONC 31.4 g/dL (32.0-36.0); Mean Corpuscular Hemoglobin 30.1 pg (27.0-31.0); Mean Corpuscular Volume 95.9 fl (81.0-99.0); Mean Platelet Volume 7.8 fL (7.4-10.4); Platelet Count 171 thou/uL (130-400); RBC Distribution Width 11.5 % (11.5-14.5); Red Blood Cell (RBC) Count 4.73 mill/uL (4.20-5.40); White Blood Cell (WBC) Count 10.6 thou/uL (4.8-10.8)
[2017-10-03] MEDS: Mometasone/Formoterol 120 PUFF INHALER INH SCH ×2 (07:17→19:10)
[2017-10-03 07:23] LABS: Anion Gap 12 mmol/L (10-20); BUN (Urea Nitrogen) 18 mg/dL (9.8-20.1); Calc. Creatinine Clearance 66 mL/min (70-130); Calcium 9.2 mg/dL (7.8-10.44); Carbon Dioxide 33 mmol/L (23-31); Chloride 99 mmol/L (98-107); Estimated GFR-MDRD Greater than 90; Glucose 142 mg/dL (80-115); Magnesium 2.2 mg/dL (1.6-2.6); Phosphorus 4.7 mg/dL (2.3-4.7); Potassium 4.3 mmol/L (3.5-5.1); Sodium 140 mmol/L (136-145)
--- NOTE | 2017-10-03 08:53 | PRG ---
DATE OF SERVICE: 10/03/2017 This morning she is somewhat better, less shortness of breath, less coughing. She is still wheezing. She is still having some vague chest pain. Her troponin is elevated. We will try and get input from Cardiology to see what else can be done for her. In the meantime, I switched her over to prednisone . PHYSICAL EXAMINATION: VITAL SIGNS: On examination, blood pressure 108/70, sats are 95% on 2 liters, respirations 18, tempe rature 98. CHEST: Minimal wheezing. CARDIAC: Normal S1-S2. No gallops. ABDOMEN: No masses. LABORATORY: White count 10,000, H&H is unremarkable. Electrolytes are normal. Troponin is 0.126. IMPRESSION: 1. Chest pain, elevated troponin. 2. Chronic obstructive pulmonary disease. 3. Asthma. 4. Respiratory failure, improved. PLAN: P.o. prednisone, antibiotics, neb treatments, supportive care. Cardiology input. She can be transferred to telemetry bed.
[2017-10-03] MEDS: Aspirin 325 MG TAB PO SCH (09:20)
[2017-10-03] MEDS: predniSONE 20 MG TAB PO SCH ×2 (09:20→20:31)
[2017-10-03] MEDS: Pantoprazole 40 MG VIAL IVP SCH (09:20)
[2017-10-03] MEDS: Enoxaparin Sodium 40 MG/0.4 ML SYRINGE SC SCH (09:21)
--- NOTE | 2017-10-03 10:56 | PDOC.PN ---
- Subjective Encounter Start Date: 10/03/17 Encounter Start Time: 10:55 Subjective: no chest pain, still sob - Objective Resuscitation Status: Resuscitation Status FULL:Full Resuscitation MAR Reviewed: Yes Vital Signs & Weight: Vital Signs (12 hours) Temp Pulse Resp Pulse Ox 10/03/17 10:45 93 17 98 10/03/17 08:00 98.0 F 103 H 18 92 L 10/03/17 07:16 95 19 95 10/03/17 04:00 98.2 F 10/03/17 03:27 88 18 94 L 10/03/17 03:26 93 L 10/03/17 00:00 98.1 F Weight Admit Weight 110 lb Weight 110 lb Most Recent Monitor Data Heart Rate from ECG 93 NIBP 105/63 NIBP BP-Mean 71 Respiration from ECG 18 SpO2 93 I&O: 10/02/17 10/03/17 10/04/17 06:59 06:59 06:59 Intake Total 1418 1740 240 Output Total 2875 4310 675 Balance -1117 -2570 -435 Result Diagrams: 10/03/17 05:05 10/03/17 05:05 Phys Exam - Physical Examination Constitutional: NAD Neck: no JVD diffuse coarse wheezes Cardiovascular: RRR, no significant murmur Gastrointestinal: soft, non-tender, positive bowel sounds Musculoskeletal: no edema Dx/Plan (1) Acute respiratory failure with hypoxia and hypercapnia Code(s): J96.01 - ACUTE RESPIRATORY FAILURE WITH HYPOXIA; J96.02 - ACUTE RESPIRATORY FAILURE WITH HYPERCAPNIA Status: Acute (2) Status asthmaticus Code(s): J45.902 - UNSPECIFIED ASTHMA WITH STATUS ASTHMATICUS Status: Acute Qualifiers: Asthma severity: severe Asthma persistence: persistent Qualified Code(s) : J45.52 - Severe persistent asthma with status asthmaticus (3) NSTEMI (non-ST elevated myocardial infarction) Code(s): I21.4 - NON-ST ELEVATION (NSTEMI) MYOCARDIAL INFARCTION Status: Acute (4) Chest pain Code(s): R07.9 - CHEST PAIN, UNSPECIFIED Status: Acute - Plan transfer to [facility] -: cont asa, protonix- cardiology input -: cont nebs, steroids, antibx * .
--- NOTE | 2017-10-03 22:20 | CON ---
DATE OF CONSULTATION: 10/03/2017 REASON FOR CONSULTATION: Severe asthma, chest pain, history of Takotsubo's cardiomyopathy. HISTORY OF PRESENT ILLNESS: Ms. Reagan is a delightful 67-year-old woman. The patient came to the hospital and was admitted with respiratory failure and required intubation. The patient had a respi ratory acidosis, required urgent intubation. This patient is also very tachycardic during that time. PAST MEDICAL HISTORY: 1. Severe chronic obstructive pulmonary disease. 2. History of Takotsubo's cardiomyopathy. This occurred in 2009. She was seen by Dr. Berry, her e jection fraction was initially in the 20s, but prior to being discharged home, he had already got brien k in the 50%-55% range. Troponin levels just over 10, in view of a dramatic improvement, cardiac catheterization was not done at that time. SOCIAL HISTORY: Nonsmoker, nondrinker. ALLERGIES: None known. FAMILY HISTORY: Negative for heart disease at a young age or lung disease at a young age. REVIEW OF SYSTEMS: Constitutional: No significant weight gain or loss. Vision: No changes. Hearing: No changes. Pu lmonary: No cough or wheezing. Gastrointestinal: No nausea, vomiting, diarrhea. Skin: No rashes. Neurologic: No unilateral weakness or numbness. Psychiatric: No unusual depression or anxiety. Hematologic: No unusual bruising. Genitourinary: No burning with urination. PHYSICAL EXAMINATION: GENERAL: A pleasant, thin 67-year-old woman in no distress. VITAL SIGNS: Blood pressure 106/70, pulse now is in the 90-105 range, sinus tachycardia. HEENT: Eyes, sclerae nonicteric. Mouth, mucous membranes moist. NECK: Supple. No lymphadenopathy. LUNGS: She still has diffuse expiratory wheezing. CARDIAC: Normal S1, normal S2. There is no murmur, rub or gallop. ABDOMEN: Soft, nontender, no hepatosplenomegaly. EXTREMITIES: Warm, dry. No clubbing, cyanosis or edema. Peripheral pulses, I feel good dorsalis pe dis pulses bilaterally. LABORATORY AND X-RAY FINDINGS: Reviewing blood work, she had a pH of 7.17, pCO2 of 60 on 09/27/2017. Troponin level was 1.17 on the 4th and 0.126 yesterday. EKG sinus rhythm, really no acute changes. There is biphasic T-wave in V2, but the R waves inverted in leads, nonspecific finding. She did wang ve severe sinus tachycardia early during the hospitalization with a heart rate in the 130s. QRS was actually wider at that point, but I think at that point she may have actually been acidotic. ASSESSMENT: The patient has had some chest pain recently some "pinching" pain in the left side of he r chest, localized to one fingertip point. ASSESSMENT: 1. Severe asthma. 2. History of Takotsubo's cardiomyopathy with later resolved. The ejection fraction remained over 5 0%. 3. Atypical chest pain. 4. Increased troponin, probably demand ischemia. PLAN: 1. She is on aspirin. 2. Reduce dose to 81 mg a day. 3. We will follow with you, ultimately may consider stress testing if her pulmonary status allows an d certainly would not proceed at this present time when she is still wheezing.
[2017-10-04] MEDS: Mometasone/Formoterol 120 PUFF INHALER INH SCH ×2 (07:15→18:42)
--- NOTE | 2017-10-04 07:55 | PRG ---
DATE OF SERVICE: 10/04/2017 This is a 67-year-old female who is less short of breath, less coughing, wheezing. PHYSICAL EXAMINATION: VITAL SIGNS: Sats are 94% on 2 liters, pulse 101, temperature is 98. CHEST: Chest revealed decreased breath sounds, minimal wheezing. CARDIAC: Normal S1-S2. No gallops. ABDOMEN: Soft. No masses. IMPRESSION: 1. Severe chronic obstructive pulmonary disease. 2. Asthma. 3. Respiratory failure, improved. 4. Chest pain. PLAN: Cardiology input. From a pulmonary standpoint of view she is doing better. Continue nebs, an tibiotics. Hopefully, home in the next several days.
--- NOTE | 2017-10-04 08:25 | PDOC.PN ---
- Subjective Encounter Start Date: 10/04/17 Encounter Start Time: 08:19 Subjective: much less sob, afraid to walk - Objective Resuscitation Status: Resuscitation Status FULL:Full Resuscitation MAR Reviewed: Yes Vital Signs & Weight: Vital Signs (12 hours) Temp Pulse Resp BP Pulse Ox 10/04/17 07:15 101 H 20 98 10/04/17 07:12 101 H 20 98 10/04/17 03:23 97.8 F 93 16 103/64 98 10/04/17 02:20 103 H 18 98 10/04/17 02:00 98 18 132/76 97 10/04/17 00:15 97.8 F 93 16 94 L 10/04/17 00:00 98.0 F 95 29 H 147/81 H 92 L 10/03/17 23:05 97 25 H 94 L Weight Admit Weight 110 lb Weight 106 lb 12.8 oz Most Recent Monitor Data Heart Rate from ECG 85 NIBP 112/74 NIBP BP-Mean 92 Respiration from ECG 20 SpO2 92 I&O: 10/03/17 10/04/17 10/05/17 06:59 06:59 06:59 Intake Total 1740 1200 Output Total 4310 3105 Balance -2570 -1905 Result Diagrams: 10/03/17 05:05 10/03/17 05:05 Phys Exam - Physical Examination Constitutional: NAD Neck: no JVD Respiratory: clear to auscultation bilateral Cardiovascular: RRR, no significant murmur Gastrointestinal: soft, non-tender, positive bowel sounds Musculoskeletal: no edema Dx/Plan (1) Acute respiratory failure with hypoxia and hypercapnia Code(s): J96.01 - ACUTE RESPIRATORY FAILURE WITH HYPOXIA; J96.02 - ACUTE RESPIRATORY FAILURE WITH HYPERCAPNIA Status: Resolved (2) Status asthmaticus Code(s): J45.902 - UNSPECIFIED ASTHMA WITH STATUS ASTHMATICUS Status: Acute Qualifiers: Asthma severity: severe Asthma persistence: persistent Qualified Code(s) : J45.52 - Severe persistent asthma with status asthmaticus (3) NSTEMI (non-ST elevated myocardial infarction) Code(s): I21.4 - NON-ST ELEVATION (NSTEMI) MYOCARDIAL INFARCTION Status: Resolved (4) Chest pain Code(s): R07.9 - CHEST PAIN, UNSPECIFIED Status: Acute Qualifiers: Chest pain type: unspecified Qualified Code(s): R07.9 - Chest pain, unspecified - Plan marked improvement. cont nebs, antibx po and pred po -: PT to see * .
[2017-10-04] MEDS: Enoxaparin Sodium 40 MG/0.4 ML SYRINGE SC SCH (09:11)
[2017-10-04] MEDS: predniSONE 20 MG TAB PO SCH ×2 (09:12→21:33)
--- NOTE | 2017-10-04 19:35 | EKG ---
Test Reason : STAT Blood Pressure : / mmHG Vent. Rate : 146 BPM Atrial Rate : 144 BPM P-R Int : 000 ms QRS Dur : 070 ms QT Int : 296 ms P-R-T Axes : 093 061 076 degrees QTc Int : 461 ms Narrow complex tachycardia Low voltage QRS Cannot rule out Anteroseptal infarct (cited on or before 05-JUN-2014) Questionable change in initial forces of Anteroseptal leads Confirmed by YESICA WHITAKER (2) on 10/04/2017 7:34:58 PM Referred By: JEROMY Confirmed By:YESICA WHITAKER
[2017-10-05] MEDS: Mometasone/Formoterol 120 PUFF INHALER INH SCH ×2 (07:09→19:27)
[2017-10-05] MEDS: Enoxaparin Sodium 40 MG/0.4 ML SYRINGE SC SCH (07:44)
[2017-10-05] MEDS: predniSONE 20 MG TAB PO SCH ×2 (07:44→20:18)
--- NOTE | 2017-10-05 13:18 | PDOC.PN ---
- Subjective Encounter Start Date: 10/05/17 Encounter Start Time: 13:16 Subjective: no sob at rest, mild when up in room - Objective Resuscitation Status: Resuscitation Status FULL:Full Resuscitation MAR Reviewed: Yes Vital Signs & Weight: Vital Signs (12 hours) Temp Pulse Resp BP BP Pulse Ox 10/05/17 11:37 97.5 F L 106 H 20 101/60 94 L 10/05/17 10:48 108 H 18 97 10/05/17 08:00 97.7 F 107 H 20 96/63 91 L 10/05/17 07:12 97 10/05/17 07:11 103 H 18 97 10/05/17 07:09 102 H 16 97 10/05/17 05:12 97.9 F 81 20 97/62 93 L 10/05/17 03:45 94 L Weight Admit Weight 110 lb Weight 107 lb Most Recent Monitor Data Heart Rate from ECG 85 NIBP 112/74 NIBP BP-Mean 92 Respiration from ECG 20 SpO2 92 I&O: 10/04/17 10/05/17 10/06/17 06:59 06:59 06:59 Intake Total 1200 1220 Output Total 3105 1685 Balance -1905 -465 Result Diagrams: 10/03/17 05:05 10/03/17 05:05 Phys Exam - Physical Examination Constitutional: NAD Neck: no JVD Respiratory: wheezing present good BS with some wheezing Cardiovascular: RRR, no significant murmur Gastrointestinal: soft, non-tender, no distention, positive bowel sounds Musculoskeletal: no edema, pulses present Dx/Plan (1) Acute respiratory failure with hypoxia and hypercapnia Code(s): J96.01 - ACUTE RESPIRATORY FAILURE WITH HYPOXIA; J96.02 - ACUTE RESPIRATORY FAILURE WITH HYPERCAPNIA Status: Resolved (2) Status asthmaticus Code(s): J45.902 - UNSPECIFIED ASTHMA WITH STATUS ASTHMATICUS Status: Acute Qualifiers: Asthma severity: severe Asthma persistence: persistent Qualified Code(s) : J45.52 - Severe persistent asthma with status asthmaticus (3) NSTEMI (non-ST elevated myocardial infarction) Code(s): I21.4 - NON-ST ELEVATION (NSTEMI) MYOCARDIAL INFARCTION Status: Resolved (4) Chest pain Code(s): R07.9 - CHEST PAIN, UNSPECIFIED Status: Acute Qualifiers: Chest pain type: unspecified Qualified Code(s): R07.9 - Chest pain, unspecified - Plan cont improvement -: cont nebs , steroids, O2 , etc -: discuss with pulmonology * .
--- NOTE | 2017-10-05 14:31 | PRG ---
DATE OF SERVICE: 10/05/2017 SUBJECTIVE: Tez is better. She is weak. OBJECTIVE: VITAL SIGNS: Sats are 97% on 2 liters, pulse 108, temperature 97, blood pressure 96/63. CHEST: Reveals occasional wheeze. CARDIAC: Normal S1 and S2. No gallops. ABDOMEN: Soft. No masses. IMPRESSION: 1. Exacerbation of asthmatic bronchitis. 2. Abnormal troponin. PLAN: From a pulmonary standpoint of view, she could be discharged home anytime, aggressive PT and s upportive care. She needs tapering dose of prednisone over 2 weeks.
[2017-10-06] MEDS: Mometasone/Formoterol 120 PUFF INHALER INH SCH ×2 (07:48→19:01)
[2017-10-06] MEDS: predniSONE 20 MG TAB PO SCH ×2 (08:06→20:16)
[2017-10-06] MEDS: Enoxaparin Sodium 40 MG/0.4 ML SYRINGE SC SCH (08:07)
--- NOTE | 2017-10-06 12:14 | PDOC.PN ---
- Subjective Encounter Start Date: 10/06/17 Encounter Start Time: 12:12 Subjective: Seen and examined -desaturated today when off oxygen by mistake -: still not very steady on her feet - Objective Resuscitation Status: Resuscitation Status FULL:Full Resuscitation Vital Signs & Weight: Vital Signs (12 hours) Temp Pulse Resp BP Pulse Ox 10/06/17 11:33 90 16 10/06/17 09:07 97.6 F 102 H 20 93/57 L 93 L 10/06/17 08:00 98.2 F 101 H 12 94 L 10/06/17 07:48 101 H 12 10/06/17 07:32 94 L 10/06/17 07:30 101 H 12 10/06/17 03:50 94 L 10/06/17 02:33 16 Weight Admit Weight 110 lb Weight 106 lb 3.2 oz Most Recent Monitor Data Heart Rate from ECG 85 NIBP 112/74 NIBP BP-Mean 92 Respiration from ECG 20 SpO2 92 I&O: 10/05/17 10/06/17 10/07/17 06:59 06:59 06:59 Intake Total 1220 2270 240 Output Total 1685 1 Balance -465 2269 240 Result Diagrams: 10/03/17 05:05 10/03/17 05:05 Phys Exam - Physical Examination Constitutional: NAD HEENT: PERRLA, moist MMs, sclera anicteric, TM's clear Neck: no nodes, no JVD, supple, full ROM Respiratory: no rales, no rhonchi, wheezing present, clear to auscultation bilateral Cardiovascular: RRR, no significant murmur, no rub Gastrointestinal: soft, non-tender, no distention, positive bowel sounds Musculoskeletal: no edema, pulses present Dx/Plan (1) Acute respiratory failure Code(s): J96.00 - ACUTE RESPIRATORY FAILURE, UNSP W HYPOXIA OR HYPERCAPNIA Status: Acute (2) Chest pain Code(s): R07.9 - CHEST PAIN, UNSPECIFIED Status: Acute Qualifiers: Chest pain type: unspecified Qualified Code(s): R07.9 - Chest pain, unspecified (3) Elevated troponin Code(s): R74.8 - ABNORMAL LEVELS OF OTHER SERUM ENZYMES Status: Acute (4) Status asthmaticus Code(s): J45.902 - UNSPECIFIED ASTHMA WITH STATUS ASTHMATICUS Status: Acute Qualifiers: Asthma severity: severe Asthma persistence: persistent Qualified Code(s) : J45.52 - Severe persistent asthma with status asthmaticus (5) Acute respiratory failure with hypoxia and hypercapnia Code(s): J96.01 - ACUTE RESPIRATORY FAILURE WITH HYPOXIA; J96.02 - ACUTE RESPIRATORY FAILURE WITH HYPERCAPNIA Status: Resolved (6) NSTEMI (non-ST elevated myocardial infarction) Code(s): I21.4 - NON-ST ELEVATION (NSTEMI) MYOCARDIAL INFARCTION Status: Resolved (7) Respiratory failure Code(s): J96.90 - RESPIRATORY FAILURE, UNSP, UNSP W HYPOXIA OR HYPERCAPNIA Status: Acute (8) Asthma Code(s): J45.909 - UNSPECIFIED ASTHMA, UNCOMPLICATED Status: Chronic - Plan plan discussed w/ family, continue antibiotics, PT/OT, respiratory therapy More aggressive PT reccommended -: Secure a Walker -: Wean off oxygen as possible -: Dispo planning * .
--- NOTE | 2017-10-06 13:50 | PRG ---
DATE OF SERVICE: 10/06/2017 SUBJECTIVE: This morning, she is awake, alert and responsive. She is better because she says that s he walks with hypoxic. OBJECTIVE: VITAL SIGNS: Sats are 90% on 2 liters, temperature is 97 and blood pressure 93/57. CHEST: Still diffuse wheezing. CARDIAC: Normal S1 and S2. ABDOMEN: Soft. No masses. ASSESSMENT: Chronic obstructive pulmonary disease exacerbation. PLAN: Continue neb treatments, Dulera and steroids. Hopefully, she will be discharged home tomorrow if she is better.
[2017-10-07 07:11] VITALS: BP 91/60; TEMP 98.1
[2017-10-07] MEDS: Enoxaparin Sodium 40 MG/0.4 ML SYRINGE SC SCH (07:45)
[2017-10-07] MEDS: predniSONE 20 MG TAB PO SCH (07:46)
[2017-10-07] MEDS: Mometasone/Formoterol 120 PUFF INHALER INH SCH (08:08)
== END 2017-10-07 12:12 | disposition home or self-care (01) | DRG 208 ==
LOC: ERS 20:12 → IMCU/EMU 21:50 → CCU 09-27 05:31 → 2NO 10-03 23:19 → CCU 10-03 23:25 → 2NO 10-04 00:16 → T4-B 10-04 22:25
PROVIDERS: ADMIT Internal Medicine Infectious Disease; ATTEND Internal Medicine Infectious Disease
PROC: 5A09457 Assistance with Respiratory Ventilation, 24-96 Consecutive Hours, Continuous Positive Airway Pressure (ICD-10-PCS; 2017-09-26)
PROC: 5A1945Z Respiratory Ventilation, 24-96 Consecutive Hours (ICD-10-PCS; principal; 2017-09-28)
PROC: 0BH17EZ Insertion of Endotracheal Airway into Trachea, Via Natural or Artificial Opening (ICD-10-PCS; 2017-09-28)
PROC: 5A09457 Assistance with Respiratory Ventilation, 24-96 Consecutive Hours, Continuous Positive Airway Pressure (ICD-10-PCS; 2017-09-30)
DX: J45.52 Severe persistent asthma with status asthmaticus (principal); J96.01 Acute respiratory failure with hypoxia; E87.2 Acidosis; I24.8 Other forms of acute ischemic heart disease; J05.10 Acute epiglottitis without obstruction; J45.901 Unspecified asthma with (acute) exacerbation
CPT/HCPCS: 36415; 70360; 71045; 80048; 80053; 82553; 82805; 83735; 83880; 84100; 84484; 85025; 93005; 93010; 93306; 94002; 94003; 94640; 94660; 94664; 96361; 96365; 96366; A4216; C9113; G8978-GP-CJ; G8979-GP-CJ; J1650; J1956; J2060; J2250; J2270; J2405; J2704; J2920; J2930; J3475; J3480; J7050; J7506; J7611; J7620; S0028

== ENCOUNTER 2017-12-20 14:21 | Inpatient (IN) | payer SELFPAY ==
[2017-12-20 14:51] LABS: #Basophils 0.1 thou/uL (0.0-0.2); #Lymphocytes 1.5 thou/uL (1.20-3.40); #Monocytes 0.2 thou/uL (0.11-0.59); #Neutrophils 6.7 thou/uL (1.40-6.50); %Basophils 0.7 % (0.0-1.0); %Eosinophils 0.4 % (0.0-10.0); %Lymphocytes 17.6 % (21.0-51.0); %Monocytes 2.5 % (0.0-10.0); %Neutrophils 78.7 % (42.0-75.0); Hemoglobin 16.8 g/dL (12.0-16.0); Mean Corpuscular HGB CONC 32.1 g/dL (32.0-36.0); Mean Corpuscular Hemoglobin 30.1 pg (27.0-31.0); Mean Corpuscular Volume 93.9 fl (81.0-99.0); Mean Platelet Volume 7.7 fL (7.4-10.4); Platelet Count 247 thou/uL (130-400); RBC Distribution Width 11.9 % (11.5-14.5); Red Blood Cell (RBC) Count 5.56 mill/uL (4.20-5.40); White Blood Cell (WBC) Count 8.5 thou/uL (4.8-10.8)
[2017-12-20 15:08] LABS: Actual Bicarbonate (HCO3a) 27.9 mEq/L (22-26); Base Excess (BEa) 0.2 mEq/L (0 (+/-) 2.5); CO2 Tension 56.6 mmHg (35.0-45.0); Hemoglobin (Hb) 16.4 g/dL (12.0-16.0); O2 Tension (PaO2) 66.4 mmHg (80.0-100.0); pH, Arterial 7.31 (7.35-7.45)
[2017-12-20 15:09] LABS: Analyzer IN Cardio ER; Calcium, Ionized 1.3 mmol/L (1.12-1.30); Puncture Site LRA
[2017-12-20 15:14] LABS: ALT (SGPT) 16 U/L (8-55); AST (SGOT) 17 U/L (5-34); Albumin 4.7 g/dL (3.4-4.8); Alkaline Phosphatase 71 U/L (40-150); Anion Gap 15 mmol/L (10-20); BUN (Urea Nitrogen) 10 mg/dL (9.8-20.1); Bilirubin, Total 0.4 mg/dL (0.2-1.2); Calc. Creatinine Clearance 0 mL/min (70-130); Calcium 10.2 mg/dL (7.8-10.44); Carbon Dioxide 28 mmol/L (23-31); Chloride 101 mmol/L (98-107); Estimated GFR-MDRD 78; Globulin 3.5 g/dL (2.4-3.5); Glucose 186 mg/dL (80-115); Potassium 3.9 mmol/L (3.5-5.1); Protein, Total 8.2 g/dL (6.0-8.3); Sodium 140 mmol/L (136-145)
--- NOTE | 2017-12-20 15:16 | RAD ---
FRONTAL RADIOGRAPH CHEST PORTABLE UPRIGHT: Date: 12-20-17 Comparison: 09-28-17 History: Dyspnea. Asthma exacerbation. FINDINGS: The lungs are hyperinflated suggesting airtrapping. Mild increased linear interstitial density noted bilaterally. There is no pneumothorax, pleural fluid, focal consolidation or alveolar edema. IMPRESSION: Interstitial prominence and pulmonary hyperinflation. No focal consolidation or alveolar edema. POS: [facility]
[2017-12-20] MEDS ORDERED: cefTRIAXone\\ROCEPHIN 1 GM in Sodium Chloride 0.9% 100 ML IVPB SCH (16:15)
[2017-12-20] MEDS ORDERED: Acetaminophen 325 MG TAB PO PRN (16:15)
[2017-12-20] MEDS ORDERED: Ondansetron HCl/PF 4 MG/2 ML Vial IVP PRN (16:15)
[2017-12-20] MEDS ORDERED: Zolpidem Tartrate 5 MG TAB PO PRN (16:15)
[2017-12-20] MEDS ORDERED: Morphine 4 MG/ML VIAL SLOW IVP PRN (16:24)
[2017-12-20 17:38] LABS: Troponin I Less than 0.010 ng/mL (< 0.028)
[2017-12-20 18:42] VITALS: BMI 19.2
[2017-12-20] MEDS: Ipratropium Bromide 2.5 ml Neb NEB SCH ×2 (18:54→22:26)
[2017-12-20] MEDS: Famotidine 20 MG TAB PO SCH (21:00)
[2017-12-20] MEDS: methylPREDNISolone Sod Succ/PF 125 MG/2 ML VIAL IVP SCH (21:00)
[2017-12-20] MEDS: Azithromycin 500 MG in Sodium Chloride 0.9% 250 ML 250 ML IVPB SCH (22:20)
[2017-12-20] MEDS: cefTRIAXone\\ROCEPHIN 1 GM, Syringe 0.4 ML in Sterile Water 9.6 ML SLOW IVP SCH (22:20)
[2017-12-20 22:50] LABS: Troponin I Less than 0.010 ng/mL (< 0.028)
[2017-12-21 00:44] LABS: Bilirubin Negative (Negative); Blood, Urine Negative (Negative); Clarity CLEAR (Clear); Glucose, Urine (Dipstick) Negative (Negative); Leukocyte Negative (Negative); Nitrite Negative (Negative); Protein, Urine (Dipstick) 30 mg/dL (Neg-Trace); Specific Gravity, Urine 1.027 (1.002-1.036); Urobilinogen 0.2 mg/dL (0.2-1.0)
[2017-12-21 00:47] LABS: Bacteria/HPF None Seen HPF (None Seen); Hyaline Casts/LPF 0-3 HYALINE CAST LPF (0-3 Hyaline); Pathc Cast-AUWi Flag 0.87 (0-2.49); Squamous Epithelial 0-3 HPF (0-3); WBC/HPF 0-3 HPF (0-3)
[2017-12-21] MEDS: methylPREDNISolone Sod Succ/PF 125 MG/2 ML VIAL IVP SCH ×4 (01:21→20:32)
[2017-12-21] MEDS: Ipratropium Bromide 2.5 ml Neb NEB SCH ×6 (02:24→22:24)
[2017-12-21 04:59] LABS: #Lymphocytes 0.8 thou/uL (1.20-3.40); #Monocytes 0.2 thou/uL (0.11-0.59); #Neutrophils 6.9 thou/uL (1.40-6.50); %Basophils 0.4 % (0.0-1.0); %Eosinophils 0.2 % (0.0-10.0); %Lymphocytes 10.4 % (21.0-51.0); Hemoglobin 14.9 g/dL (12.0-16.0); Mean Corpuscular Hemoglobin 30.2 pg (27.0-31.0); Mean Corpuscular Volume 94.4 fl (81.0-99.0); Mean Platelet Volume 7.6 fL (7.4-10.4); Platelet Count 222 thou/uL (130-400); RBC Distribution Width 11.8 % (11.5-14.5); Red Blood Cell (RBC) Count 4.92 mill/uL (4.20-5.40); White Blood Cell (WBC) Count 7.9 thou/uL (4.8-10.8)
[2017-12-21 05:05] LABS: Anion Gap 12 mmol/L (10-20); BUN (Urea Nitrogen) 15 mg/dL (9.8-20.1); Calc. Creatinine Clearance 60 mL/min (70-130); Calcium 9.3 mg/dL (7.8-10.44); Carbon Dioxide 29 mmol/L (23-31); Chloride 104 mmol/L (98-107); Estimated GFR-MDRD 85; Glucose 150 mg/dL (80-115); Potassium 4.6 mmol/L (3.5-5.1); Sodium 140 mmol/L (136-145)
[2017-12-21 05:08] LABS: Troponin I Less than 0.010 ng/mL (< 0.028)
--- NOTE | 2017-12-21 08:08 | HP ---
DATE OF ADMISSION: 12/20/2017 CHIEF COMPLAINT: Shortness of breath. HISTORY OF PRESENT ILLNESS: This is a 67-year-old female who is presenting to the hospital in the em ergency room with shortness of breath. The patient states that she has a significant history of asth ma and states that this morning, she woke up and was having severe worsening shortness of breath and she decided to come to the hospital. She states that she has had episodes like this in the past wher e she has received antibiotics, steroids and has resolved. The patient states that she does not have an outpatient Internal Medicine or Pulmonary doctor that she follows. Denies any nausea, vomiting, diarrhea, constipation, fevers or chills. Does admit to some chest discomfort and shortness of breat h. The patient does not have any other alleviating or aggravating factors. No other associated symp toms noted. The patient was seen and examined in the ER. No family at bedside. ALLERGIES: No known drug allergies. PAST MEDICAL HISTORY: Positive for asthma as well as bronchoscopy and appendectomy. SOCIAL HISTORY: Denies any smoking or secondhand smoke exposure. Denies any drinking. FAMILY HISTORY: The patient states she is not aware of any medical history in her family. REVIEW OF SYSTEMS: Twelve point review of systems performed. Pertinent positives in the HPI. PHYSICAL EXAMINATION: VITAL SIGNS: Blood pressure of 125/81, heart rate of 130, respiratory rate of 18, temperature 98, O2 saturations 99% on BiPAP. GENERAL: Mild distress. HEENT: Pupils equal, round, react to light and accommodation. Normocephalic, atraumatic. Oral cavi ty moist and pink. NECK: Supple with mobile and nontender thyroid. CARDIOVASCULAR: Tachycardic rate, S1, S2, no murmurs, rubs or gallops appreciated. PULMONARY: Significant wheezing at all lung gibbs. No increased AP diameter. Aerating well; [facility] er, in mild respiratory distress. ABDOMEN: Positive bowel sounds, soft, nontender. EXTREMITIES: 2+ peripheral pulses. No edema noted. NEUROLOGIC: Cranial nerves II-XII intact. Alert and oriented x3. No loss of motor or sensory funct ion. LABORATORY DATA: CBC within normal limits. ABG shows a pH of 7.31, pCO2 of 57, pO2 of 66. BMP with in normal limits. Chest x-ray performed shows flattened diaphragms, as well as interstitial prominen ce of pulmonary hyperinflation. ASSESSMENT AND PLAN: 1. Chronic obstructive pulmonary disease exacerbation. 2. Shortness of breath. 3. Chest discomfort. 4. Tachycardia. 5. Hypertension. PLAN: At this point in time, we will admit the patient on BiPAP. Consult Pulmonary. We will start the patient on Rocephin and azithromycin as well we will obtain an alpha-[address] to rule out any possible autoimmune diseases. The patient denies any smoking exposure. Denies an y smoking in the past and was apparently recently diagnosed with asthma. We will also provide the pa shortyyovani with Solu-Medrol q.6 hours for now and then wean down as the patient's symptoms improved. Cont inue with BiPAP at this point in time, repeat labs in the morning. Cultures will also be done. P.r. n. pain medications. We will also provide Pepcid and Lovenox for GI and DVT prophylaxis. The patien t is to remain a FULL CODE at this point in time. Case and plan discussed with the patient at length . She understands and agrees with this plan.
[2017-12-21] MEDS: Enoxaparin Sodium 40 MG/0.4 ML SYRINGE SC SCH (08:18)
[2017-12-21] MEDS: Famotidine 20 MG TAB PO SCH ×2 (08:19→21:34)
--- NOTE | 2017-12-21 14:24 | PDOC.PN ---
- Subjective Encounter Start Date: 12/21/17 Encounter Start Time: 14:22 Patient seen and examined, states she feels much better but not back to baseline , no new issues, all questions answered. - Objective Vital Signs & Weight: Vital Signs (12 hours) Temp Pulse Resp BP Pulse Ox 12/21/17 14:11 119 H 24 H 99 12/21/17 11:45 100 12/21/17 11:25 98 F 110 H 20 112/64 97 12/21/17 10:25 99 12/21/17 10:22 107 H 23 H 99 12/21/17 10:00 115 H 22 H 119/77 99 12/21/17 07:56 98.3 F 110 H 20 98 12/21/17 07:36 98.3 F 110 H 20 102/64 98 12/21/17 06:01 114 H 21 H 99 12/21/17 05:59 114 H 27 H 99 12/21/17 04:20 97.4 F L 108 H 18 100/64 100 12/21/17 02:25 114 H 19 100 12/21/17 02:24 114 H 22 H 100 Weight Weight 105 lb 2.568 oz I&O: 12/20/17 12/21/17 12/22/17 06:59 06:59 06:59 Intake Total 350 0.96 Balance 350 0.96 Result Diagrams: 12/21/17 04:27 12/21/17 04:27 Phys Exam - Physical Examination Constitutional: NAD HEENT: PERRLA, moist MMs, sclera anicteric Neck: no nodes, no JVD, supple, full ROM Respiratory: wheezing present Cardiovascular: RRR, no significant murmur, no rub Gastrointestinal: soft, non-tender, no distention Musculoskeletal: no edema, pulses present Neurological: non-focal, normal sensation Dx/Plan (1) COPD (chronic obstructive pulmonary disease) Status: Acute (2) Chest pain Code(s): R07.9 - CHEST PAIN, UNSPECIFIED Status: Acute (3) Tachycardia Code(s): R00.0 - TACHYCARDIA, UNSPECIFIED Status: Acute - Plan * reduce steroids, patient improving * cont abx * cultures pending * transfer to telemetry today * DC planning in 24-48hrs if patient continues to improve * case and plan d/w patient at length, he understands and agrees with this plan
--- NOTE | 2017-12-21 16:14 | CON ---
DATE OF CONSULTATION: 12/21/2017 SERVICE: Pulmonary Medicine. REASON FOR CONSULTATION: Asthma exacerbation. HISTORY OF PRESENT ILLNESS: The patient is a 67-year-old female with past medical history significan t for severe asthma. She was in her usual state of health until she started having increasing work o f breathing and dyspnea once again. This came on over a period fairly abruptly. She went to bed and everything was okay, but on waking up, she was short-winded. She presented to the emergency departm ent. Since she has been here, she has had a significant improvement in her work of breathing. She r equires BiPAP on and off still. That being said, she seems to be tolerating short breaks. Prior to this encounter, she did not have any fevers, chills, shortness of breath or chest discomfort. PAST MEDICAL HISTORY: Asthma. SOCIAL HISTORY: Negative for alcohol, tobacco or illicit drug use. FAMILY HISTORY: Noncontributory. PAST SURGICAL HISTORY: Appendectomy and bronchoscopy. REVIEW OF SYSTEMS: General, head, ears, eyes, nose, throat, cardiovascular, respiratory, GI, , mus culoskeletal, neurologic and skin is negative except as mentioned in the HPI. PHYSICAL EXAMINATION: VITAL SIGNS: Afebrile, pulse 110, blood pressure 109/66, respirations 24, saturation 99% on 4 liters nasal cannula. GENERAL: The patient is awake, alert, no apparent distress. LUNGS: There is good air entry, but there is a prolonged expiratory phase and polyphonic wheezing. HEART: Normal rate, regular. ABDOMEN: Soft, nontender, nondistended. Bowel sounds are positive. MUSCULOSKELETAL: No cyanosis or clubbing. There is no pitting in the bilateral lower extremities. NEUROLOGIC: Grossly nonfocal. LABORATORY DATA: WBC 7.9, hemoglobin 14.9, platelets 222,000. INR 0.9. A pH 7.31, pCO2 56, pO2 66. Basic metabolic profile completely unremarkable. Cardiac enzymes are negative x3. Liver function studies were previously negative. Urinalysis is also unremarkable. Blood cultures x2 are negative. IMAGING: Chest x-ray demonstrates no acute cardiopulmonary abnormality. There is hyperexpanded lung gibbs bilaterally. Emphysema is likely present. ASSESSMENT: 1. Acute on chronic hypoxic and hypercapnic respiratory failure. 2. Status asthmaticus. 3. Chronic diastolic heart failure, currently euvolemic. PLAN: Pulmonary Critical Care will continue to follow. We will initiate BiPAP breaks. These will b e performed 4 times daily and increase as tolerated. If at any point, she can tolerate BiPAP break f or more than 15 minutes for 24 hours, we will need to electively intubate to prevent her from having a respiratory event. Critical Care will continue to follow very closely. CRITICAL CARE TIME: 30 minutes.
[2017-12-21] MEDS: Azithromycin 500 MG in Sodium Chloride 0.9% 250 ML 250 ML IVPB SCH (17:01)
[2017-12-21] MEDS: cefTRIAXone\\ROCEPHIN 1 GM, Syringe 0.4 ML in Sterile Water 9.6 ML SLOW IVP SCH (18:15)
[2017-12-22] MEDS: Ipratropium Bromide 2.5 ml Neb NEB SCH ×4 (02:32→14:39)
[2017-12-22 05:19] LABS: #Basophils 0.1 thou/uL (0.0-0.2); #Lymphocytes 1.2 thou/uL (1.20-3.40); #Monocytes 0.4 thou/uL (0.11-0.59); #Neutrophils 13.9 thou/uL (1.40-6.50); %Basophils 0.7 % (0.0-1.0); %Eosinophils 0.1 % (0.0-10.0); %Lymphocytes 7.6 % (21.0-51.0); %Monocytes 2.4 % (0.0-10.0); %Neutrophils 89.1 % (42.0-75.0); Hemoglobin 14.1 g/dL (12.0-16.0); Mean Corpuscular HGB CONC 31.8 g/dL (32.0-36.0); Mean Corpuscular Hemoglobin 30.4 pg (27.0-31.0); Mean Corpuscular Volume 95.4 fl (81.0-99.0); Platelet Count 208 thou/uL (130-400); RBC Distribution Width 11.8 % (11.5-14.5); Red Blood Cell (RBC) Count 4.64 mill/uL (4.20-5.40); White Blood Cell (WBC) Count 15.6 thou/uL (4.8-10.8)
[2017-12-22 05:41] LABS: Anion Gap 13 mmol/L (10-20); BUN (Urea Nitrogen) 25 mg/dL (9.8-20.1); Calc. Creatinine Clearance 55 mL/min (70-130); Calcium 9.3 mg/dL (7.8-10.44); Carbon Dioxide 35 mmol/L (23-31); Chloride 101 mmol/L (98-107); Estimated GFR-MDRD 77; Glucose 122 mg/dL (80-115); Potassium 4.6 mmol/L (3.5-5.1); Sodium 144 mmol/L (136-145)
[2017-12-22] MEDS: Enoxaparin Sodium 40 MG/0.4 ML SYRINGE SC SCH (08:16)
[2017-12-22] MEDS: Famotidine 20 MG TAB PO SCH ×2 (08:17→20:48)
[2017-12-22] MEDS: methylPREDNISolone Sod Succ/PF 125 MG/2 ML VIAL IVP SCH ×2 (08:17→20:47)
--- NOTE | 2017-12-22 11:10 | PDOC.PN ---
- Subjective Encounter Start Date: 12/22/17 Encounter Start Time: 11:01 Patient seen and examined, states she feels better, states she has SOB upon ambulation to bathroom - Objective Vital Signs & Weight: Vital Signs (12 hours) Temp Pulse Resp BP BP Pulse Ox 12/22/17 10:13 104 H 18 12/22/17 10:03 106 H 20 98/65 96 12/22/17 08:25 96.4 F L 106 H 20 89 L 12/22/17 07:40 96.4 F L 106 H 20 102/76 98 12/22/17 07:38 92 L 12/22/17 07:14 105 H 22 H 98 12/22/17 04:04 97.4 F L 96 17 94/65 97 12/22/17 02:33 90 15 99 12/22/17 02:32 93 16 99 12/22/17 00:04 97.2 F L 88 15 96/61 96 Weight Weight 105 lb 2.568 oz I&O: 12/21/17 12/22/17 12/23/17 06:59 06:59 06:59 Intake Total 350 1080.56 Output Total 600 Balance 350 480.56 Result Diagrams: 12/22/17 03:40 12/22/17 03:40 Phys Exam - Physical Examination Constitutional: NAD HEENT: PERRLA, moist MMs, sclera anicteric Neck: no nodes, no JVD, supple Respiratory: wheezing present Cardiovascular: no significant murmur, no rub tachycardic Gastrointestinal: soft, non-tender, no distention Musculoskeletal: no edema, pulses present Dx/Plan (1) COPD (chronic obstructive pulmonary disease) Status: Acute (2) Chest pain Code(s): R07.9 - CHEST PAIN, UNSPECIFIED Status: Acute (3) Tachycardia Code(s): R00.0 - TACHYCARDIA, UNSPECIFIED Status: Acute - Plan * continue current plan of care * transfer to telemetry if ok with CCU team * DC plans in 24-48hrs if patient is symptomatically improving * labs in AM * case and plan d/w patient at length, she understands and agrees with this plan
--- NOTE | 2017-12-22 15:20 | PRG ---
DATE OF SERVICE: 12/22/2017 SERVICE: Pulmonary Medicine. INTERVAL HISTORY: The patient is doing okay from a respiratory standpoint. Last night, she got put back on her BiPAP for a brief period of time. This morning, she was given a break once again. She h as been on a break all day long and is breathing more comfortably. Otherwise, there has been no barry ge to her condition. PHYSICAL EXAMINATION: VITAL SIGNS: Afebrile, pulse 94, blood pressure 98/57, respirations 18, saturation 100% on 3 liters nasal cannula. GENERAL: The patient is awake, alert, no apparent distress. LUNGS: Improved air entry. There is polyphonic wheeze on exhalation. HEART: Normal rate, regular. ABDOMEN: Soft, nontender, nondistended. Bowel sounds are positive. MUSCULOSKELETAL: No cyanosis or clubbing. No pitting in the bilateral lower extremities. NEUROLOGIC: Grossly nonfocal. LABORATORY DATA: WBC 15.6, hemoglobin 14.1, platelets 208,000. Basic metabolic profile is unremarka ble. Cardiac enzymes x3 are negative. Blood cultures x2 remain negative. ASSESSMENT: 1. Acute on chronic hypoxic and hypercapnic respiratory failure. 2. Status asthmaticus. 3. Chronic diastolic heart failure, return to euvolemia. PLAN: We will continue our antibiotics, nebulized medications and steroids. We will continue our Bi PAP as needed. I will change her over to DuoNeb scheduled. Pulmonary or Critical Care will continue to follow closely.
[2017-12-22] MEDS: Azithromycin 500 MG in Sodium Chloride 0.9% 250 ML 250 ML IVPB SCH (16:57)
[2017-12-22] MEDS: cefTRIAXone\\ROCEPHIN 1 GM, Syringe 0.4 ML in Sterile Water 9.6 ML SLOW IVP SCH (18:12)
[2017-12-23 05:29] LABS: #Monocytes 0.2 thou/uL (0.11-0.59); #Neutrophils 8.9 thou/uL (1.40-6.50); %Basophils 0.1 % (0.0-1.0); %Eosinophils 0.1 % (0.0-10.0); %Lymphocytes 9.8 % (21.0-51.0); Hemoglobin 13.3 g/dL (12.0-16.0); Mean Corpuscular HGB CONC 32.3 g/dL (32.0-36.0); Mean Corpuscular Volume 96.1 fl (81.0-99.0); Platelet Count 200 thou/uL (130-400); RBC Distribution Width 11.8 % (11.5-14.5); White Blood Cell (WBC) Count 10.1 thou/uL (4.8-10.8)
[2017-12-23 05:51] LABS: Anion Gap 12 mmol/L (10-20); BUN (Urea Nitrogen) 29 mg/dL (9.8-20.1); Calc. Creatinine Clearance 63 mL/min (70-130); Calcium 8.5 mg/dL (7.8-10.44); Carbon Dioxide 26 mmol/L (23-31); Chloride 103 mmol/L (98-107); Estimated GFR-MDRD Greater than 90; Glucose 128 mg/dL (80-115); Potassium 4.4 mmol/L (3.5-5.1); Sodium 137 mmol/L (136-145)
[2017-12-23] MEDS: Enoxaparin Sodium 40 MG/0.4 ML SYRINGE SC SCH (07:20)
[2017-12-23] MEDS: Famotidine 20 MG TAB PO SCH ×2 (07:21→21:01)
[2017-12-23] MEDS: methylPREDNISolone Sod Succ/PF 125 MG/2 ML VIAL IVP SCH ×2 (07:21→21:01)
--- NOTE | 2017-12-23 09:10 | RAD ---
CHEST 1 VIEW: HISTORY: Dyspnea. COMPARISON: Chest radiograph 12/20/17. FINDINGS: Lungs are hyperinflated suggesting inflammatory disease. No pneumothorax. No large effusion. Cardi ac silhouette and mediastinal contour is similar. No acute osseous abnormality. IMPRESSION: Obstructive pulmonary disease. No acute intrathoracic abnormality. POS: [facility]
--- NOTE | 2017-12-23 10:30 | PDOC.PN ---
- Subjective Encounter Start Date: 12/23/17 Encounter Start Time: 10:28 Patient seen and examined, states she feels much better today, no new issues, no family at bedside, all questions answered. - Objective Vital Signs & Weight: Vital Signs (12 hours) Temp Pulse Resp BP BP Pulse Ox 12/23/17 07:42 97.9 F 84 14 101/57 L 97 12/23/17 07:33 97.6 F 91 16 96 12/23/17 07:19 97.6 F 91 16 90/67 96 12/23/17 06:36 70 16 12/23/17 04:10 96.9 F L 64 19 105/66 100 12/23/17 00:43 82 21 H 100 12/23/17 00:12 97.5 F L 73 19 94/61 100 12/23/17 00:00 100 Weight Weight 106 lb 4.205 oz I&O: 12/22/17 12/23/17 12/24/17 06:59 06:59 06:59 Intake Total 1080.56 1920.56 360 Output Total 600 1300 Balance 480.56 620.56 360 Result Diagrams: 12/23/17 04:50 12/23/17 04:50 Phys Exam - Physical Examination Constitutional: NAD HEENT: PERRLA, moist MMs, sclera anicteric minimal wheezing, MUCH improved from yesterday Cardiovascular: RRR, no significant murmur, no rub Gastrointestinal: soft, non-tender, no distention Musculoskeletal: no edema, pulses present Dx/Plan (1) COPD (chronic obstructive pulmonary disease) Status: Acute (2) Chest pain Code(s): R07.9 - CHEST PAIN, UNSPECIFIED Status: Acute (3) Tachycardia Code(s): R00.0 - TACHYCARDIA, UNSPECIFIED Status: Acute - Plan * patient doing much better * likely can move out of ICU today if ok with pulmonary as bipap requirements not present * monitor over 24hrs * can DC in AM if patient doing well and wheezing no longer present * case and plan d/w patient at length, she understands and agrees with this plan
--- NOTE | 2017-12-23 14:29 | PRG ---
DATE OF SERVICE: 12/23/2017 SERVICE: Pulmonary Medicine. INTERVAL HISTORY: The patient is doing fantastic from a cardiovascular and respiratory standpoint. She feels like she has turned the corner. Last night, she used the BiPAP. This morning; however, sania cordova has not had to go back on it, which is fantastic. She denies any chest pain, fevers, chills, nause a or vomiting. PHYSICAL EXAMINATION: VITAL SIGNS: Afebrile, pulse 95, blood pressure 99/61, respirations 14, saturation 97% on 1 liter na yanni cannula. GENERAL: Patient is awake, alert, no apparent distress. LUNGS: Decent air entry with a prolonged expiratory phase. Small airway wheezing is going away. Sania cordova continues to have some large airway wheezing. I do not appreciate any crackles or rhonchi. HEART: Normal rate, regular. ABDOMEN: Soft, nontender, nondistended. Bowel sounds positive. MUSCULOSKELETAL: No cyanosis or clubbing. No pitting in the bilateral lower extremities. NEUROLOGIC: Grossly nonfocal. LABORATORY DATA: WBC 10.1, hemoglobin 13.3 and platelets 200,000. Basic metabolic profile was essen tially unremarkable. Her creatinine is 0.65 and BUN is trending upward gently at 29. Blood cultures x2 are unremarkable. IMAGING DATA: Chest x-ray demonstrates no acute change. ASSESSMENT: 1. Acute on chronic hypoxic and hypercapnic respiratory failure. 2. Status asthmaticus. 3. Chronic diastolic heart failure, return to euvolemia. PLAN: We will continue on nebulized medications, antibiotics and steroids. At this point, the BiPAP will be put on hold. If she does well over the next 12 hours, she can be considered for transition to the floor. I would like for her to remain in this location for 1 additional day. She previously had relapses that occur 3-4 days into the hospital stay.
[2017-12-23] MEDS: Azithromycin 500 MG in Sodium Chloride 0.9% 250 ML 250 ML IVPB SCH (16:54)
[2017-12-23] MEDS: cefTRIAXone\\ROCEPHIN 1 GM, Syringe 0.4 ML in Sterile Water 9.6 ML SLOW IVP SCH (18:12)
[2017-12-24] MEDS: Enoxaparin Sodium 40 MG/0.4 ML SYRINGE SC SCH (08:02)
[2017-12-24] MEDS: methylPREDNISolone Sod Succ/PF 125 MG/2 ML VIAL IVP SCH (08:03)
[2017-12-24] MEDS: Famotidine 20 MG TAB PO SCH ×2 (08:03→20:36)
--- NOTE | 2017-12-24 15:19 | PRG ---
DATE OF SERVICE: 12/24/2017 SUBJECTIVE: Tez is admitted with difficult breathing, shortness of breath, and coughing. She i s much better this morning. She is not wheezing. PHYSICAL EXAMINATION: VITAL SIGNS: Her sats are 96% on 1 liter, respiratory rate 19, blood pressure 110/74. CHEST: Decreased breath sounds without any wheezing. CARDIAC: Normal S1 and S2. No gallops. ABDOMEN: Soft. No masses. LABORATORY DATA AND IMAGING DATA: She had total IgE of 839. X-ray showed no acute infiltrates. BNP was normal. IMPRESSION: 1. Asthma exacerbation. 2. Elevated IgE. PLAN: It appears if she is improved, I will switch her to oral medications, antibiotics and steroids . Hopefully, she will be discharged home in the next several days.
--- NOTE | 2017-12-24 17:22 | PDOC.PN ---
- Subjective Encounter Start Date: 12/24/17 Encounter Start Time: 17:00 Subjective: f/u asthma exacerbation now resolving. Remains on O2 1L/min -: NC but feels better overall. No new complaints. - Objective MAR Reviewed: Yes Vital Signs & Weight: Vital Signs (12 hours) Temp Pulse Resp BP Pulse Ox 12/24/17 13:22 92 18 94 L 12/24/17 12:05 98.5 F 100 20 117/74 96 12/24/17 08:07 97.6 F 105 H 20 104/69 90 L 12/24/17 07:54 98.0 F 88 18 113/63 97 12/24/17 07:45 91 18 93 L Weight Weight 106 lb 4.205 oz I&O: 12/23/17 12/24/17 12/25/17 06:59 06:59 06:59 Intake Total 1920.56 780 400 Output Total 1300 960 Balance 620.56 -180 400 Result Diagrams: 12/23/17 04:50 12/23/17 04:50 Radiology Reviewed by me: Yes (PCXR - obstructive changes, no infiltrate) EKG Reviewed by me: Yes (Tele - SR) Phys Exam - Physical Examination Constitutional: NAD HEENT: PERRLA, oral pharynx no lesions Neck: no JVD, supple Occasional rhonchi o/w clear Cardiovascular: RRR Gastrointestinal: soft, non-tender, no distention, positive bowel sounds Musculoskeletal: no edema, pulses present Neurological: normal sensation, moves all 4 limbs Psychiatric: A&O x 3 Skin: normal turgor, cap refill <2 seconds Dx/Plan (1) Acute respiratory failure Code(s): J96.00 - ACUTE RESPIRATORY FAILURE, UNSP W HYPOXIA OR HYPERCAPNIA Status: Acute Qualifiers: Respiratory failure complication: hypoxia Qualified Code(s): J96.01 - Acute respiratory failure with hypoxia Comment: Improved with supportive measures, continue Prednisone, Doxycycline (2) Status asthmaticus Code(s): J45.902 - UNSPECIFIED ASTHMA WITH STATUS ASTHMATICUS Status: Acute Qualifiers: Asthma severity: severe Asthma persistence: persistent Qualified Code(s) : J45.52 - Severe persistent asthma with status asthmaticus Comment: Improved with supportive mgmt, see #1, Marie (3) COPD (chronic obstructive pulmonary disease) Status: Chronic Comment: Continue pulmonary mgmt, trial Dulera 2 puffs BID - Plan continue antibiotics, respiratory therapy, out of bed/ambulate, DVT proph w/SCDs Stable overall -: Wean O2 supplemtation as clinically indicated -: Trial Dulera 2 puffs BID -: Continue Prednisone 20mg BID -: Likely home in 24h * .
[2017-12-24] MEDS: Mometasone/Formoterol 120 PUFF INHALER INH SCH (18:33)
[2017-12-24] MEDS: Doxycycline 100 MG CAP PO SCH (20:36)
[2017-12-24] MEDS: predniSONE 20 MG TAB PO SCH (20:36)
[2017-12-25] MEDS: Mometasone/Formoterol 120 PUFF INHALER INH SCH (07:53)
--- NOTE | 2017-12-25 09:07 | PRG ---
DATE OF SERVICE: 12/25/2017 The patient is doing quite well, less short of breath. Eager to go home. PHYSICAL EXAMINATION: VITAL SIGNS: Sats are 97% on room air, temperature is 98, pulse 70, respiration 16, blood pressure 1 25/80. CHEST: Chest reveals decreased breath sounds, no wheezing. CARDIAC: Normal S1, S2. IMPRESSION: 1. Asthma exacerbation. 2. Bronchitis, much improved. PLAN: She can be discharged home on antibiotics and steroids tapered for 2 weeks. Follow up with Dr. Adams as needed.
[2017-12-25] MEDS: Enoxaparin Sodium 40 MG/0.4 ML SYRINGE SC SCH (09:47)
[2017-12-25] MEDS: Famotidine 20 MG TAB PO SCH (09:47)
[2017-12-25] MEDS: predniSONE 20 MG TAB PO SCH (09:48)
[2017-12-25] MEDS: Doxycycline 100 MG CAP PO SCH (09:48)
[2017-12-25 12:37] VITALS: TEMP 98.6
[2017-12-25 12:47] VITALS: BP 112/67
--- NOTE | 2017-12-25 16:56 | DIS ---
DATE OF ADMISSION: 12/20/2017 DATE OF DISCHARGE: 12/25/2017 DISCHARGE DIAGNOSES: 1. Acute hypoxic hypercapnic respiratory failure secondarily to #2 resolving. 2. Status asthmaticus, resolved. 3. Chronic obstructive pulmonary disease, stable. CONSULTATIONS: Dr. Adams and Mary with Pulmonology Service. PERTINENT LABORATORY DATA AND X-RAY FINDINGS: Basic metabolic profile within normal limits. LFTs wi thin normal limits. Total IgE antibody 839. CBC showed white blood cell count ranging between 8.5-1 5.6. Blood cultures x2 from 12/20/2017 showed no growth at 48 hours. Portable chest x-ray dated showed interstitial prominence and pulmonary hyperinflation. Portable chest x-ray dated 09/2017 showed obstructive chronic changes. HOSPITAL COURSE: Patient was admitted to the telemetry unit after initially presenting with shortnes s of breath and asthma exacerbation with hypoxemia and hypercapnia. The patient received IV antibiot ics, Solu-Medrol, and bronchodilator therapy. The patient was initially placed on BiPAP noninvasive mechanical ventilation transitioning to oxygen by nasal cannula. The patient received IV Rocephin an d Zithromax as well as IV Solu-Medrol as stated previously. The patient was slow to clinically impro ve; however, was able to wean off oxygen support by the time of discharge. The patient transitioned to prednisone and continued on DuoNeb therapy. Overall, patient remained clinically stable, tolerati ng regular oral intake, ambulating without assistance or difficulty with stable vital signs. I have examined and reviewed disposition and followup instructions with the patient at the time of discharge who verbalizes understanding and agreement. Overall, patient clinically stable and ready for discha rge on 12/25/2017. DISCHARGE MEDICATIONS: 1. Ventolin nebulized solution 2.5 mg inhaled daily p.r.n. 2. Proventil HFA 2 puffs inhaled daily p.r.n. 3. Doxycycline 100 mg p.o. b.i.d. x5 days. 4. DuoNeb 3 mL nebulized q.4 hours p.r.n. 5. Prednisone 20 mg 1 tab p.o. b.i.d. x3 days, followed by 1 tab p.o. daily x 3 days, followed by wang lf a tab p.o. daily x3 days. FOLLOWUP: The patient will follow up with her primary care provider, Michelle Pereira within 7 days of discharge. CONDITION ON DISCHARGE: Stable. ACTIVITY: Ad adele. DIET: Regular. CODE STATUS: FULL. DISPOSITION: Home 12/25/2017. Total time preparing and coordinating discharge is 33 minutes.
== END 2017-12-25 13:42 | disposition home or self-care (01) | DRG 189 ==
LOC: ERS 14:21 → IMCU/EMU 16:18
PROVIDERS: ADMIT Internal Medicine; ATTEND Internal Medicine
PROC: 5A09357 Assistance with Respiratory Ventilation, Less than 24 Consecutive Hours, Continuous Positive Airway Pressure (ICD-10-PCS; principal; 2017-12-20)
DX: J96.21 Acute and chronic respiratory failure with hypoxia (principal); I11.0 Hypertensive heart disease with heart failure; I50.32 Chronic diastolic (congestive) heart failure; J45.52 Severe persistent asthma with status asthmaticus; J96.22 Acute and chronic respiratory failure with hypercapnia; R00.0 Tachycardia, unspecified
CPT/HCPCS: 36415; 71045; 80048; 80053; 81001; 82785; 82805; 84484; 85025; 87040; 93005; 94640; 94660; 94760; A4216; J0456; J0696; J7050; J7620

== ENCOUNTER 2018-07-20 10:53 | Inpatient (IN) | payer SELFPAY ==
[2018-07-20 11:19] LABS: #Basophils 0.1 thou/uL (0.0-0.2); #Eosinphils 0.3 thou/uL (0.0-0.7); #Lymphocytes 2.5 thou/uL (1.20-3.40); #Monocytes 0.2 thou/uL (0.11-0.59); #Neutrophils 7.1 thou/uL (1.40-6.50); %Basophils 1.1 % (0.0-1.0); %Eosinophils 2.5 % (0.0-10.0); %Lymphocytes 24.4 % (21.0-51.0); %Monocytes 2.3 % (0.0-10.0); %Neutrophils 69.8 % (42.0-75.0); Hemoglobin 16.7 g/dL (12.0-16.0); Mean Corpuscular Hemoglobin 29.3 pg (27.0-31.0); Mean Corpuscular Volume 94.6 fL (78.0-98.0); Mean Platelet Volume 8.2 fL (7.4-10.4); Platelet Count 234 thou/uL (130-400); RBC Distribution Width 11.7 % (11.5-14.5); Red Blood Cell (RBC) Count 5.69 mill/uL (4.20-5.40); White Blood Cell (WBC) Count 10.2 thou/uL (4.8-10.8)
[2018-07-20 11:21] LABS: Actual Bicarbonate (HCO3a) 27.4 mEq/L (22-28); Analyzer IN Cardio ER; Base Excess (BEa) -3.2 mEq/L (-2.0 to +3.0); Calcium, Ionized 1.18 mmol/L (1.12-1.30); Hemoglobin (Hb) 16.8 g/dL (12.0-16.0); O2 Tension (PaO2) 74.2 mmHg (> 80.0); Potassium - ABG Lab 3.89 mmol/L (3.70-5.30)
[2018-07-20 11:22] LABS: CO2 Tension 73.7 mmHg (35.0-45.0); pH, Arterial 7.19 (7.35-7.45)
[2018-07-20 11:23] LABS: ALV-art Gradient 83.225 (0-20); Puncture Site LRA
[2018-07-20 11:39] LABS: ALT (SGPT) 13 U/L (8-55); AST (SGOT) 19 U/L (5-34); Albumin 4.4 g/dL (3.4-4.8); Alkaline Phosphatase 60 U/L (40-150); Anion Gap 12 mmol/L (10-20); BUN (Urea Nitrogen) 16 mg/dL (9.8-20.1); Bilirubin, Total 0.4 mg/dL (0.2-1.2); Calc. Creatinine Clearance 0 mL/min (70-130); Calcium 9.2 mg/dL (7.8-10.44); Carbon Dioxide 27 mmol/L (23-31); Chloride 105 mmol/L (98-107); Estimated GFR-MDRD 77; Globulin 3.2 g/dL (2.4-3.5); Glucose 178 mg/dL (80-115); Potassium 3.7 mmol/L (3.5-5.1); Protein, Total 7.6 g/dL (6.0-8.3); Sodium 140 mmol/L (136-145)
[2018-07-20 11:45] LABS: CKMB 2.1 ng/mL (0-6.6); Troponin I Less than 0.010 ng/mL (< 0.028)
--- NOTE | 2018-07-20 12:38 | RAD ---
PORTABLE CHEST: Date: 07/20/18 PROVIDED CLINICAL HISTORY: Dyspnea. FINDINGS: Comparison made with study dated 12/23/17. The cardiac and mediastinal silhouette are unchanged in appearance. Emphysematous changes are again s een. The interstitium appears more prominent than on the prior study, which could reflect acute inter stitial processes such as interstitial edema. There is no focal consolidation, pleural fluid, or pneu mothorax apparent. IMPRESSION: Prominence of the pulmonary interstitium, which appears new with respect to the prior examination and could reflect an acute interstitial process such as edema. Follow-up is recommended. POS: [facility]
[2018-07-20 12:59] LABS: Actual Bicarbonate (HCO3a) 27.7 mEq/L (22-28); Analyzer IN Cardio ER; Carboxyhemoglobin (COHb) 0.4 gm% (0.0-3.0); O2 Tension (PaO2) 66.3 mmHg (> 80.0); Potassium - ABG Lab 3.98 mmol/L (3.70-5.30)
[2018-07-20 13:00] LABS: CO2 Tension 81.8 mmHg (35.0-45.0); Puncture Site RRA; pH, Arterial 7.15 (7.35-7.45)
[2018-07-20] MEDS ORDERED: Midazolam HCl 5 mg/ml Vial ONE (13:05)
[2018-07-20] MEDS ORDERED: Succinylcholine Chloride 20 MG/ML 10 ml SYRINGE FS ONE (13:06)
[2018-07-20] MEDS ORDERED: Propofol 1,000 MG/100 ML VIAL IV ONE (13:06)
[2018-07-20] MEDS ORDERED: Rocuronium Bromide 50 MG/5 ML VIAL ONE (13:39)
[2018-07-20 13:57] LABS: Actual Bicarbonate (HCO3a) 18.1 mEq/L (22-28); Analyzer IN Cardio ER; Base Excess (BEa) -11.1 mEq/L (-2.0 to +3.0); CO2 Tension 53.5 mmHg (35.0-45.0); Calcium, Ionized 1.02 mmol/L (1.12-1.30); Carboxyhemoglobin (COHb) 0.1 gm% (0.0-3.0); Hemoglobin (Hb) 13.7 g/dL (12.0-16.0); O2 Tension (PaO2) 332.6 mmHg (> 80.0); Potassium - ABG Lab 3.18 mmol/L (3.70-5.30)
[2018-07-20 14:00] LABS: ALV-art Gradient 28.325 (0-20); Puncture Site LBA; pH, Arterial 7.15 (7.35-7.45)
[2018-07-20] MEDS ORDERED: Acetaminophen 325 MG TAB PO PRN (14:26)
[2018-07-20] MEDS ORDERED: Ondansetron PF 4 MG/2 ML Vial IVP PRN (14:26)
[2018-07-20] MEDS ORDERED: Ondansetron ODT 4 MG TAB SL PRN (14:26)
--- NOTE | 2018-07-20 14:34 | CON ---
DATE OF CONSULTATION: 07/20/2018 This is 45 minutes critical care time. REASON FOR EVALUATION: Acute asthma exacerbation. HISTORY OF PRESENT ILLNESS: The patient presented to the ER earlier today with a day long history of increasing shortness of breath. She is unable to give me much in the way of history because she is so short of breath. She is currently on a Trilogy BiPAP machine, thought she needed to be intubated but the patient has refused so far saying that she wants to continue on the Trilogy machine. Medical history is taken from reviewing previous notes. PAST MEDICAL HISTORY: Asthma with multiple intubations in the past. PAST SURGICAL HISTORY: Appendectomy. SOCIAL HISTORY: Does not smoke, does not consume alcohol. ALLERGIES: None. CURRENT MEDICATIONS: List is not available at the current time. REVIEW OF SYSTEMS: Cannot be obtained due to the patient's severe shortness of breath. PHYSICAL EXAMINATION: VITAL SIGNS: Pulse 146, blood pressure 135/96, O2 sat 95%, respiratory rate now in the low 20s, and tidal CO2 is 29. GENERAL: The patient is sitting up. She is on BiPAP machine. She is using some accessory neck musc le. HEENT: Unremarkable. NECK: No JVD. LUNGS: She has bilateral harsh end expiratory wheezing with prolonged expiratory phase. CARDIOVASCULAR: S1, S2 tachycardic. ABDOMEN: Soft, nontender. EXTREMITIES: No clubbing, cyanosis, or edema. LABORATORY DATA: White blood cell count 10.2, hematocrit 53.9, platelet count 234. pH 7.19, , pO2 of 74 that was on BiPAP 12/6 with FiO2 of 35%. Sodium 140, potassium 3.7, chloride 105, CO2 of 2 7, BUN 16, creatinine 0.7, glucose 178. Chest x-ray demonstrates gross hyperinflation, no acute infiltrate. She has chronic interstitial robert nges towards the hilum. ASSESSMENT: 1. Acute asthma exacerbation. 2. Acute hypercapnic and hypoxic respiratory failure requiring noninvasive mechanical ventilation. I am very concerned that the patient needs to be intubated. I spent a great deal of time trying to t alk her on the intubation but she refused. She stopped sort of totally ruling out the need for intub ation if she got worse. The emergency room doctor admitted to the [facility] but I have changed that to CCU admission as I feel like this patient could acutely decompensate. She will be started on agg ressive IV steroids, aggressive nebulization therapy, and continued with noninvasive ventilation. Sh art will be followed very closely.
--- NOTE | 2018-07-20 14:36 | PRG ---
DATE OF SERVICE: 07/20/2018 This patient continued to decompensate in the first 45 minutes after I initially checked her. Her re peat blood gas showed an increased level in her CO2. After I told the patient this is a matter of li fe or , she reluctantly agreed to be intubated. She was placed in a supine position. She recei christina bag mask ventilation on 100% oxygen prior. She was given a total of 5 mg Versed IV, 4 mg of etom idate IV. I intubated her on first attempt with a 7.5 endotracheal tube orally with a GlideScope as visualization. Placement was confirmed by yellow, end tidal CO2 and by auscultation. A chest x-ray also confirmed placement. The patient was then placed on a ventilator. She received a dose of succi nylcholine to facilitate ventilation. She also received IV propofol, 3 liters of IV fluids, and some rocuronium. The procedure was tolerated well. A repeat blood gas will be done within the hour.
[2018-07-20] MEDS ORDERED: CCU Electrolyte Replacement 1 EACH FS ONE (14:37)
[2018-07-20] MEDS ORDERED: Ventilator Sedation Protocol 1 EACH FS SCH (14:37)
[2018-07-20] MEDS ORDERED: Albuterol Sulfate 2.5 mg/3 ml Neb NEB PRN (14:37)
--- NOTE | 2018-07-20 14:37 | RAD ---
PORTABLE CHEST: Date: 07/20/18 PROVIDED CLINICAL HISTORY: Intubation. FINDINGS: Comparison made with the exam performed earlier same date. Interval placement of endotracheal tube, tip of which projects in the regio of the thoracic inlet. In terval placement of enteric catheter, the proximal side hole lucency which projects beneath the left hemidiaphragm. Additional significant interval change with respect to the prior study is not apparent . IMPRESSION: As above. POS: [facility]
[2018-07-20] MEDS ORDERED: Bisacodyl 10 MG SUPP PR PRN (14:41)
[2018-07-20] MEDS ORDERED: hydrALAZINE 20 MG/ML VIAL SLOW IVP PRN (14:41)
[2018-07-20] MEDS ORDERED: Acetaminophen 500 MG TAB PO PRN (14:41)
[2018-07-20] MEDS ORDERED: Nitroglycerin 0.4 MG TAB (25 Tab Bottle) SL PRN (14:41)
[2018-07-20] MEDS ORDERED: cloNIDine 0.1 MG TAB PO PRN (14:41)
[2018-07-20] MEDS ORDERED: Propofol BOLUS 1,000 MG/100 ML VIAL IV PRN (14:55)
[2018-07-20] MEDS ORDERED: DISCONTINUE PREVIOUS NARCOTIC PAIN MEDICATIONS AND BENZODIAZEPINES FS SCH (14:55)
[2018-07-20] MEDS ORDERED: fentaNYL Citrate/PF 2,000 MCG in Sodium Chloride 0.9% 60 ML IV SCH (14:55)
[2018-07-20] MEDS ORDERED: Fentanyl BOLUS 250 ML IVPB PRN (14:55)
[2018-07-20] MEDS ORDERED: Potassium Chloride 40 MEQ in Sodium Chloride 0.9% 250 ML 250 ML IVPB PRN (14:56)
[2018-07-20] MEDS ORDERED: Potassium Chloride 20 MEQ TAB PO PRN (14:56)
[2018-07-20] MEDS ORDERED: Potassium Phosphate 12 MMOL in Sodium Chloride 0.9% 250 ML 250 ML IV PRN (14:56)
[2018-07-20] MEDS ORDERED: Potassium Phosphate 9 MMOL in Sodium Chloride 0.9% 100 ML IVPB PRN (14:56)
[2018-07-20] MEDS ORDERED: Magnesium 2 GM/NS 0.9% 100 ML 2 GM in Premix Bag 1 BAG IVPB PRN (14:56)
[2018-07-20] MEDS ORDERED: Potassium Phosphate 15 MMOL in Sodium Chloride 0.9% 250 ML 250 ML IV PRN (14:56)
[2018-07-20] MEDS ORDERED: CCU ELECTROLYTE REPLACEMENT PROTOCOL FS PRN (14:56)
[2018-07-20] MEDS ORDERED: Magnesium Oxide 400 MG TAB PO PRN ×2 (14:56)
[2018-07-20] MEDS ORDERED: Potassium Chloride 40 MEQ in Premix Bag 1 BAG IVPB PRN (14:56)
[2018-07-20] MEDS ORDERED: Morphine 2 MG/ML SYRINGE SLOW IVP PRN (14:59)
[2018-07-20] MEDS: Sodium Chloride 0.9% 1,000 ML IV SCH ×2 (15:21→20:49)
--- NOTE | 2018-07-20 16:11 | HP ---
DATE OF ADMISSION: 07/20/2018 PRIMARY CARE PHYSICIAN: Michelle Pereira NP CHIEF COMPLAINT: Worsening shortness of breath. HISTORY OF PRESENT ILLNESS: Ms. Reagan is a 67-year-old female with known history of asthma and mu ltiple hospitalizations due to acute respiratory failure from asthma, requiring intubation, who prese nted to the emergency room with the complaints of worsening shortness of breath. History is mainly o btained by the discussion with the emergency room physician and chart review. The patient is current ly intubated and sedated at this time and no history is obtainable. According to the emergency room physician, , she was brought in by EMS for complaints of marilyn rtness of breath. She was having difficulty talking in full sentences. No family is at bedside. I am not sure of the family was there in the emergency room. She was given Solu-Medrol, epinephrine, m agnesium and multiple DuoNebs en route. Upon presentation, she was 99% on facemask and showed increa sed work of breathing. She was initially started on BiPAP and ABGs were checked. She was found to b e in significant respiratory acidosis with pH of 7.19 and pCO2 of 73 with oxygen of 74%. This was on BiPAP. Pulmonary Medicine, Dr. Guadarrama, was consulted and he saw the patient in the emergency room and the decision was made that she would require intubation for significant respiratory acidosis. Af ter consult was obtained, she was intubated and transferred to the critical care unit. I am see am e xamining her in the CCU at this time. PAST MEDICAL HISTORY: Asthma with multiple hospitalizations due to acute asthma exacerbation. PAST SURGICAL HISTORY: Appendectomy. HOME MEDICATIONS: Prednisone 20 mg p.o. b.i.d., DuoNeb every 4 hours as needed, doxycycline 100 mg p.o. b.i.d., albuterol inhaler p.r.n. and albuterol nebulizer p.r.n. ALLERGIES: No known medication allergies. FAMILY HISTORY: No significant family history of any premature coronary artery disease or stroke or cancer. SOCIAL HISTORY: According to the [employer], she has no history of drug, tobacco or alcohol abuse. REVIEW OF SYSTEMS: It is not obtainable at this time given the fact that the patient is intubated an d sedated. LABORATORY DATA: Her CBC is unremarkable. Serum chemistries are unremarkable. Lactic acid 1.4. Ca rdiac enzymes normal. Repeat ABG shortly after intubation was pH of 7.15, pCO2 53, oxygen 332. Ches t x-ray by my review shows no evidence of pleural effusion, edema or infiltrate. PHYSICAL EXAMINATION: VITAL SIGNS: Most recent vital signs, temperature 97.6, heart rate 108, blood pressure 96/65, respir ations 15, saturating 99% on ventilator. GENERAL: No acute distress. She is fully sedated at this time. HEENT: Endotracheal tube in place. Head is normocephalic, atraumatic. Pupils equal, reactive to li ght and accommodation pinpoint at this time. NECK: Supple, no JVD, no bruit. CHEST: Evaluation show few expiratory wheezes, but equal air entry bilaterally. Rate and rhythm is regular, mildly tachycardic. ABDOMEN: Soft, nondistended. Positive bowel sounds. EXTREMITIES: Free of any cyanosis, clubbing, or edema. NEUROLOGIC: Limited due to sedation. SKIN: Free of any rashes or bruises. I feel warm and dry to touch. IMPRESSION AND PLAN: 1. Acute hypoxic respiratory failure with hypercarbia. This is secondary to acute asthma exacerbati on. The patient has been intubated and Dr. Guadarrama has seen the patient. We will continue her nebul izers, IV steroids, inhaled budesonide nebulizers as well as Singulair. Ventilator management as per the Pulmonary Medicine. We appreciate her help. We will continue symptomatic and supportive care. The patient had an echocardiogram done earlier this year which was unremarkable. No other etiology for her acute hypoxic respiratory failure is evident at this time except for acute asthma exacerbatio n. She will be continued in CCU with the CCU electrolyte protocol. 2. Add p.r.n. medication orders. 3. Deep venous thrombosis and gastrointestinal prophylaxis. DISPOSITION: Ms. eRagan is currently being admitted to CCU for acute hypoxic and hypercarbic respi ratory failure likely secondary to acute asthma exacerbation. Estimated length of stay at least 2-3 midnights. Further management will depend upon her clinical course.
[2018-07-20] MEDS: Lorazepam 2 MG/ML VIAL SLOW IVP PRN (16:16)
[2018-07-20 17:14] LABS: Actual Bicarbonate (HCO3a) 18.4 mEq/L (22-28); CO2 Tension 54.9 mmHg (35.0-45.0); Hemoglobin (Hb) 15.5 g/dL (12.0-16.0); O2 Tension (PaO2) 87.5 mmHg (> 80.0)
[2018-07-20 17:16] LABS: Puncture Site RRA; pH, Arterial 7.14 (7.35-7.45)
[2018-07-20 17:17] LABS: ALV-art Gradient 57.775 (0-20)
[2018-07-20] MEDS: Budesonide 0.5 MG/2 ML NEB INH SCH (18:39)
[2018-07-20] MEDS: Montelukast Sodium 10 mg Tablet PO SCH (20:46)
[2018-07-20] MEDS: methylPREDNISolone Sod Succ/PF 125 MG/2 ML VIAL IVP SCH (23:46)
[2018-07-21] MEDS: Propofol 1,000 MG/100 ML VIAL IV PRN ×2 (00:06→16:26)
[2018-07-21] MEDS: Lorazepam 2 MG/ML VIAL SLOW IVP PRN ×3 (01:37→19:14)
[2018-07-21 03:49] LABS: #Lymphocytes 0.7 thou/uL (1.20-3.40); #Monocytes 0.4 thou/uL (0.11-0.59); #Neutrophils 13.7 thou/uL (1.40-6.50); %Basophils 0.1 % (0.0-1.0); %Eosinophils 0.1 % (0.0-10.0); %Lymphocytes 4.6 % (21.0-51.0); %Monocytes 2.5 % (0.0-10.0); %Neutrophils 92.8 % (42.0-75.0); Hemoglobin 14.7 g/dL (12.0-16.0); Mean Corpuscular HGB CONC 30.8 g/dL (32.0-36.0); Mean Corpuscular Hemoglobin 29.7 pg (27.0-31.0); Mean Corpuscular Volume 96.3 fL (78.0-98.0); Mean Platelet Volume 8.6 fL (7.4-10.4); Platelet Count 191 thou/uL (130-400); RBC Distribution Width 11.9 % (11.5-14.5); Red Blood Cell (RBC) Count 4.93 mill/uL (4.20-5.40); White Blood Cell (WBC) Count 14.7 thou/uL (4.8-10.8)
[2018-07-21 04:09] LABS: ALT (SGPT) 45 U/L (8-55); AST (SGOT) 45 U/L (5-34); Albumin 3.6 g/dL (3.4-4.8); Alkaline Phosphatase 49 U/L (40-150); Anion Gap 14 mmol/L (10-20); BUN (Urea Nitrogen) 15 mg/dL (9.8-20.1); Bilirubin, Total 0.4 mg/dL (0.2-1.2); Calc. Creatinine Clearance 55 mL/min (70-130); Calcium 7.9 mg/dL (7.8-10.44); Carbon Dioxide 21 mmol/L (23-31); Chloride 110 mmol/L (98-107); Estimated GFR-MDRD 71; Globulin 2.6 g/dL (2.4-3.5); Glucose 162 mg/dL (80-115); Potassium 4.1 mmol/L (3.5-5.1); Protein, Total 6.2 g/dL (6.0-8.3); Sodium 141 mmol/L (136-145)
[2018-07-21] MEDS: methylPREDNISolone Sod Succ/PF 125 MG/2 ML VIAL IVP SCH ×4 (05:35→23:53)
[2018-07-21] MEDS ORDERED: methylPREDNISolone Sod Succ/PF 125 MG/2 ML VIAL IVP SCH (06:00)
[2018-07-21] MEDS: Budesonide 0.5 MG/2 ML NEB INH SCH ×2 (06:31→18:53)
[2018-07-21] MEDS: Vecuronium 10 MG VIAL IVP PRN ×5 (06:42→19:14)
[2018-07-21 07:20] LABS: Actual Bicarbonate (HCO3a) 22.3 mEq/L (22-28); Base Excess (BEa) -4.2 mEq/L (-2.0 to +3.0); CO2 Tension 46.4 mmHg (35.0-45.0); Carboxyhemoglobin (COHb) 1.1 gm% (0.0-3.0); Hemoglobin (Hb) 12.9 g/dL (12.0-16.0); O2 Tension (PaO2) 83.8 mmHg (> 80.0)
[2018-07-21 07:43] LABS: Puncture Site RRA
--- NOTE | 2018-07-21 08:10 | RAD ---
PORTABLE CHEST: Date: 07/21/18 HISTORY: Ventilator and CCU follow-up. COMPARISON: 07/20/18. FINDINGS: ET tube and NG tube are unchanged. Lungs appear clear of infiltrate. Mild interstitial prominence is again noted, stable. IMPRESSION: No interval change noted. POS: [facility]
[2018-07-21] MEDS: Enoxaparin Sodium 40 MG/0.4 ML SYRINGE SC SCH (08:28)
[2018-07-21] MEDS: Pantoprazole 40 MG VIAL IVP SCH (08:29)
--- NOTE | 2018-07-21 08:52 | PRG ---
DATE OF SERVICE: 07/21/2018 A 45 minutes critical care time. SUBJECTIVE: The patient remains intubated on mechanical ventilation. PHYSICAL EXAMINATION: VITAL SIGNS: Temperature is 99.2, pulse 113, blood pressure 91/62. A 24-hour intake 1584, output 12 65. HEENT: Unremarkable. NECK: No adenopathy or JVD. LUNGS: Diffuse expiratory wheezing. Peak pressures in the 50s. Plateau pressures in the mid 20s. CARDIAC: S1, S2, slightly tachycardic. ABDOMEN: Soft, nontender. EXTREMITIES: No edema. LABORATORY DATA: ABG: PH 7.30, pCO2 46, pO2 83 on SIMV rate 15, tidal and 380, PEEP 5, pressure sup port 10, FiO2 30%. White blood cell count 14.7, hematocrit 47.5, platelet count 191. Sodium 141, po tassium 4.1, chloride 110, CO2 21, BUN 15, creatinine 0.8, glucose 162. ASSESSMENT: 1. Severe asthma with development of status asthmaticus. 2. Acute hypoxic and hypercapnic respiratory failure requiring mechanical ventilation. PLAN: The patient is not weanable at the current time. I have adjusted her mechanical ventilation p arameters. She will continue steroids, nebulization therapy, and mechanical ventilation. She may re quire intermittent paralysis. We will start enteral tube feeds.
[2018-07-21] MEDS: Sodium Chloride 0.45% 1,000 ML IV SCH ×2 (09:15→23:25)
[2018-07-21] MEDS ORDERED: Magnesium Sulfate 4 GM in Sodium Chloride 0.9% 250 ML 250 ML IVPB SCH (09:45)
--- NOTE | 2018-07-21 10:15 | PDOC.PN ---
- Subjective Encounter Start Date: 07/21/18 Encounter Start Time: 10:13 Subjective: remians intubated and sedated for peristant respiratory failure -: no overnight events - Objective MAR Reviewed: Yes Vital Signs & Weight: Vital Signs (12 hours) Temp Pulse Resp BP Pulse Ox 07/21/18 10:00 15 07/21/18 08:00 15 07/21/18 07:40 100 07/21/18 07:00 99.2 F 07/21/18 06:33 116 H 115/78 07/21/18 06:29 114 H 15 99 07/21/18 06:00 15 07/21/18 04:00 18 07/21/18 03:00 98 F 116 H 16 100 07/21/18 02:00 18 07/21/18 01:10 108 H 20 100 07/21/18 00:00 18 07/20/18 23:00 98.4 F 07/20/18 22:15 103 H 19 100 Weight Weight 117 lb 1.047 oz Most Recent Monitor Data Heart Rate from ECG 114 NIBP 139/89 NIBP BP-Mean 105 Respiration from ECG 30 SpO2 96 I&O: 07/20/18 07/21/18 07/22/18 06:59 06:59 06:59 Intake Total 1584 Output Total 1265 95 Balance 319 -95 Result Diagrams: 07/21/18 03:33 07/21/18 03:33 Additional Labs: Laboratory Tests 07/20/18 07/20/18 07/20/18 11:20 12:57 12:57 ABG pH 7.19 L* 7.15 L* 7.15 L* ABG pCO2 73.7 H* 81.8 H* 53.5 H 07/20/18 07/21/18 17:08 07:00 ABG pH 7.14 L* 7.30 L ABG pCO2 54.9 H 46.4 H Phys Exam - Physical Examination Constitutional: NAD intubated. HEENT: PERRLA, moist MMs, sclera anicteric, oral pharynx no lesions Neck: no nodes, no JVD, supple, full ROM Respiratory: wheezing present perisitant extensive expiratory wheezes Cardiovascular: RRR, no significant murmur Gastrointestinal: soft, non-tender, no distention, positive bowel sounds Musculoskeletal: no edema, pulses present Neurological: moves all 4 limbs Deviation from normal: sedated Dx/Plan (1) Status asthmaticus Code(s): J45.902 - UNSPECIFIED ASTHMA WITH STATUS ASTHMATICUS Status: Acute Qualifiers: Asthma severity: severe Asthma persistence: persistent Qualified Code(s) : J45.52 - Severe persistent asthma with status asthmaticus Comment: Improved with supportive mgmt, see #1, Stevieonefeliz (2) Acute respiratory failure with hypoxia and hypercapnia Code(s): J96.01 - ACUTE RESPIRATORY FAILURE WITH HYPOXIA; J96.02 - ACUTE RESPIRATORY FAILURE WITH HYPERCAPNIA Status: Resolved (3) Uncompensated respiratory acidosis Code(s): E87.2 - ACIDOSIS Status: Acute Comment: improving - Plan respiratory therapy, DVT proph w/SCDs cont vent support as pt still has significant wheezes on exam -: cont nebs,steroids. -: Gentle IVF hydration. -: Tube feeds to be started per PCCM.appreciate input -: HD stable.am labs * . Review of Systems - Review of Systems Other: can not be obtained due to intubated and sedated state - Medications/Allergies Allergies/Adverse Reactions: Allergies Allergy/AdvReac Type Severity Reaction Status Date / Time levofloxacin Allergy Verified 07/20/18 13:07 Medications: Current Medications Acetaminophen (Tylenol) 1,000 mg PO Q6H PRN PRN Reason: Mild Pain (1-3) Albuterol Sulfate (Ventolin) 2.5 mg NEB Q1H PRN PRN Reason: Wheezing Albuterol/Ipratropium (Duoneb) 3 ml NEB [id number] REPLACED BY [facility] Last Admin: 07/21/18 06:29 Dose: 3 ml Bisacodyl (Dulcolax) 10 mg OH DAILYPRN PRN PRN Reason: Constipation Budesonide (Pulmicort Neb Solution) 0.5 mg INH BID-RT REPLACED BY [facility] Last Admin: 07/21/18 06:31 Dose: 0.5 mg Clonidine (Catapres) 0.1 mg PO Q4H PRN PRN Reason: SBP > _160___ Enoxaparin Sodium (Lovenox) 40 mg SC 0900 REPLACED BY [facility] Last Admin: 07/21/18 08:28 Dose: 40 mg Hydralazine HCl (Apresoline) 10 mg SLOW IVP Q4H PRN PRN Reason: SBP > 180 and HR < 70 Fentanyl Citrate 2,000 mcg/ (Sodium Chloride) 100 mls @ 0 mls/hr IV INF MALVIN; Protocol Stop: 08/19/18 14:55 Fentanyl Citrate (Fentanyl Bolus) 250 mls @ 0 mls/hr IVPB PRN PRN PRN Reason: Breakthrough pain/agitation Stop: 08/19/18 14:55 Potassium Chloride 40 meq/ (Sodium Chloride) 270 mls @ 135 mls/hr IVPB ASDIR PRN PRN Reason: FOR SERUM K+ 2.5 - 3.5 Potassium Chloride 40 meq/ (Device) 100 mls @ 50 mls/hr IVPB ASDIR PRN PRN Reason: FOR SERUM K+ 2.5 - 3.5 Magnesium Sulfate 1 gm/ Sodium (Chloride) 102 mls @ 102 mls/hr IV PRN PRN PRN Reason: MAG LEVEL 1.4 - 2.0 Magnesium Sulfate 2 gm/ Device 100 mls @ 100 mls/hr IVPB ASDIR PRN PRN Reason: MAGNESIUM < 1.4 Potassium Phosphate 9 mmol/ (Sodium Chloride) 103 mls @ 25.75 mls/hr IVPB ASDIR PRN PRN Reason: Phosphate 1.0-1.8 Potassium Phosphate 12 mmol/ (Sodium Chloride) 254 mls @ 63.5 mls/hr IV ASDIR PRN PRN Reason: Serum phosphate 0.5-0.9 Potassium Phosphate 15 mmol/ (Sodium Chloride) 255 mls @ 63.75 mls/hr IV ASDIR PRN PRN Reason: Serum Phos < 0.5 Magnesium Sulfate 4 gm/ Sodium (Chloride) 258 mls @ 129 mls/hr IVPB NOW REPLACED BY [facility] Stop: 07/21/18 11:44 Last Admin: 07/21/18 09:38 Dose: 258 mls Sodium Chloride (1/2 Normal Saline) 1,000 mls @ 75 mls/hr IV .[id number] MALVIN Last Admin: 07/21/18 09:15 Dose: 1,000 mls Lorazepam (Ativan) 2 mg SLOW IVP Q1H PRN PRN Reason: Breakthrough agitation Stop: 08/19/18 14:55 Last Admin: 07/21/18 01:37 Dose: 2 mg Magnesium Oxide (Magnesium Oxide) 400 mg PO BIDPRN PRN PRN Reason: FOR SERUM MAG 1.4 - 2.0 Magnesium Oxide (Magnesium Oxide) 800 mg PO PRN PRN PRN Reason: FOR SERUM MAG < 1.4 Methylprednisolone Sodium Succinate (Solu-Medrol) 60 mg IVP Q6HR REPLACED BY [facility] Last Admin: 07/21/18 05:35 Dose: 60 mg Miscellaneous Medication (Phos-Nak) 1 pkt PO TIDPRN PRN PRN Reason: FOR PHOS LEVEL 1.0 - 1.8 Miscellaneous Medication (Phos-Nak) 2 pkt PO TIDPRN PRN PRN Reason: FOR PHOS LEVEL 0.5 - 1.0 Montelukast Sodium (Singulair) 10 mg PO QPM REPLACED BY [facility] Last Admin: 07/20/18 20:46 Dose: 10 mg Morphine Sulfate (Morphine) 2 mg SLOW IVP Q1H PRN PRN Reason: BREAKTHROUGH PAIN/AGITATION Stop: 08/19/18 15:00 Nitroglycerin (Nitrostat) 0.4 mg SL Q5MIN PRN PRN Reason: Chest Pain Discontinue Previous Narcotic Pain Medications And Benzodiazepines 1 each FS .ONE REPLACED BY [facility] Stop: 08/19/18 14:55 Ccu Electrolyte (Replacement Protocol) 0 each FS PRN PRN PRN Reason: FOR ELECTROLYTE REPLACEMENT Pantoprazole Sodium (Protonix) 40 mg IVP DAILY REPLACED BY [facility] Last Admin: 07/21/18 08:29 Dose: 40 mg Potassium Chloride (K-Dur) 40 meq PO ASDIR PRN PRN Reason: FOR SERUM K+ 2.5 - 3.5 Potassium Chloride (Klor-Con) 40 meq PER TUBE ASDIR PRN PRN Reason: FOR SERUM K+ 2.5-3.5 Propofol (Diprivan) 1,000 mg IV INF PRN; Protocol PRN Reason: TO ACHIEVE GOAL RASS Stop: 08/19/18 14:55 Last Admin: 07/21/18 00:06 Dose: 1,000 mg Propofol (Diprivan Bolus) 20 mg IV Q5MIN PRN PRN Reason: BREAKTHROUGH AGITATION Stop: 08/19/18 14:55 Vecuronium [place] (Norcuron) 10 mg IVP Q30MIN PRN PRN Reason: Agitation Last Admin: 07/21/18 08:26 Dose: 10 mg
[2018-07-21] MEDS ORDERED: Sterile Water 10 ML ONE (10:49)
[2018-07-21] MEDS ORDERED: Sterile Water 10 ML VIAL FS PRN (19:13)
[2018-07-21] MEDS: Montelukast Sodium 10 mg Tablet PO SCH (20:06)
[2018-07-22] MEDS: Lorazepam 2 MG/ML VIAL SLOW IVP PRN ×3 (01:35→19:56)
[2018-07-22] MEDS: Vecuronium 10 MG VIAL IVP PRN (01:35)
[2018-07-22 05:10] LABS: Hemoglobin 13.8 g/dL (12.0-16.0); Mean Corpuscular HGB CONC 30.8 g/dL (32.0-36.0); Mean Corpuscular Hemoglobin 29.2 pg (27.0-31.0); Mean Corpuscular Volume 94.6 fL (78.0-98.0); Mean Platelet Volume 8.7 fL (7.4-10.4); Platelet Count 176 thou/uL (130-400); RBC Distribution Width 11.9 % (11.5-14.5); Red Blood Cell (RBC) Count 4.75 mill/uL (4.20-5.40); White Blood Cell (WBC) Count 16.7 thou/uL (4.8-10.8)
[2018-07-22 05:27] LABS: Anion Gap 10 mmol/L (10-20); BUN (Urea Nitrogen) 17 mg/dL (9.8-20.1); Calc. Creatinine Clearance 67 mL/min (70-130); Calcium 8.3 mg/dL (7.8-10.44); Carbon Dioxide 27 mmol/L (23-31); Chloride 107 mmol/L (98-107); Estimated GFR-MDRD 86; Glucose 141 mg/dL (80-115); Magnesium 2.7 mg/dL (1.6-2.6); Potassium 3.7 mmol/L (3.5-5.1); Sodium 140 mmol/L (136-145)
[2018-07-22 05:46] LABS: Band 24 % (5-11); Lymphocytes 4 % (21-51); MDiff Complete? YES; Monocytes 1 % (0-10); Neutrophil 71 % (42-75)
[2018-07-22] MEDS: methylPREDNISolone Sod Succ/PF 125 MG/2 ML VIAL IVP SCH ×4 (06:07→23:53)
[2018-07-22] MEDS: Budesonide 0.5 MG/2 ML NEB INH SCH ×2 (07:49→14:13)
[2018-07-22 08:19] LABS: Actual Bicarbonate (HCO3a) 23.4 mEq/L (22-28); Base Excess (BEa) -1.4 mEq/L (-2.0 to +3.0); CO2 Tension 39.6 mmHg (35.0-45.0); Carboxyhemoglobin (COHb) 1.2 gm% (0.0-3.0); Hemoglobin (Hb) 14.4 g/dL (12.0-16.0); pH, Arterial 7.39 (7.35-7.45)
[2018-07-22 08:20] LABS: O2 Tension (PaO2) 59.9 mmHg (> 80.0); Puncture Site RRA
[2018-07-22] MEDS: Pantoprazole 40 MG VIAL IVP SCH (08:54)
[2018-07-22] MEDS: cefTRIAXone\\ROCEPHIN 1 GM in Sodium Chloride 0.9% 100 ML IVPB SCH (08:55)
[2018-07-22] MEDS: Enoxaparin Sodium 40 MG/0.4 ML SYRINGE SC SCH (08:55)
--- NOTE | 2018-07-22 09:18 | PRG ---
DATE OF SERVICE: 07/22/2018 The patient remains intubated on the vent with diffuse wheezing. Sedation is on board. PHYSICAL EXAMINATION: VITAL SIGNS: Pulse is 99, blood pressure 96/60, sats ae 97%, respiration 20. CHEST: Chest reveals decreased breath sounds with prolonged expiration, marked wheezing. CARDIAC: Sinus tachycardia. ABDOMEN: Soft. NEURO: Neurologically, she is sedated. LABORATORY DATA: White count 16,000, H&H 13 and 43, platelet count 76. PO2 is 91, pO2 59, pCO2 37.3 9 on 31%, rate of 15, 5 of PEEP. Electrolytes are normal. Chest x-ray was unremarkable. IMPRESSION: 1. Chronic obstructive pulmonary disease. 2. Asthma exacerbation. 3. Respiratory failure. PLAN: She is not weanable at this stage. Continue neb treatments, steroids, supportive care, nutrit ion, PT. One-half hour critical care time.
[2018-07-22] MEDS: Sodium Chloride 0.45% 1,000 ML IV SCH ×2 (11:20→23:52)
[2018-07-22] MEDS: Budesonide 0.25 MG/2 ML NEB INH SCH ×2 (14:13→19:19)
--- NOTE | 2018-07-22 14:36 | PDOC.PN ---
- Subjective Encounter Start Date: 07/22/18 Encounter Start Time: 13:20 -: old records requested/rev Pt seen and examined, chart reviewed in its entirety, this is my first visit with this patient follow up for: acute asthma exacerbation with acute hypoxemic and hypercapneic respiratory failure, intubated and sedated on vent No F/C, no N/V/D/C, no CP or SOB All systems reviewed and neg x as per HPI - Objective MAR Reviewed: Yes Vital Signs & Weight: Vital Signs (12 hours) Temp Pulse Resp BP Pulse Ox 07/22/18 14:15 99 92/52 L 07/22/18 14:11 99 18 96 07/22/18 12:00 19 07/22/18 11:00 98.3 F 07/22/18 10:37 103 H 125/80 07/22/18 10:33 107 H 17 99 07/22/18 10:00 19 07/22/18 08:00 15 07/22/18 07:50 97 92/57 L 07/22/18 07:48 98 07/22/18 07:46 98 15 99 07/22/18 07:00 98.1 F 07/22/18 04:30 100 07/22/18 04:29 100 15 94 L 07/22/18 04:00 100.1 F H 15 07/22/18 03:00 100.1 F H Weight Admit Weight 114 lb Weight 115 lb Most Recent Monitor Data Heart Rate from ECG 105 NIBP 118/67 NIBP BP-Mean 84 Respiration from ECG 22 SpO2 100 I&O: 07/21/18 07/22/18 07/23/18 06:59 06:59 06:59 Intake Total 1584 2279 100 Output Total 1265 1435 525 Balance 319 844 -425 Result Diagrams: 07/24/18 03:41 07/24/18 03:41 Radiology Reviewed by me: Yes EKG Reviewed by me: Yes Phys Exam - Physical Examination Constitutional: NAD sedated, orally intubated, on ventilator HEENT: PERRLA, moist MMs, sclera anicteric, oral pharynx no lesions Neck: no nodes, no JVD, supple, full ROM prolonged expiration, exp wheezes, no rhonchi Cardiovascular: RRR tachy, regular Gastrointestinal: soft, non-tender, no distention, positive bowel sounds Musculoskeletal: no edema Lymphatic: no nodes Skin: no rash, normal turgor, cap refill <2 seconds Dx/Plan (1) Uncompensated respiratory acidosis Code(s): E87.2 - ACIDOSIS Status: Acute Comment: improving (2) Acute respiratory failure Code(s): J96.00 - ACUTE RESPIRATORY FAILURE, UNSP W HYPOXIA OR HYPERCAPNIA Status: Acute Qualifiers: Respiratory failure complication: hypoxia Qualified Code(s): J96.01 - Acute respiratory failure with hypoxia Comment: Improved with supportive measures, continue Prednisone, adjust abx (3) Elevated troponin Code(s): R74.8 - ABNORMAL LEVELS OF OTHER SERUM ENZYMES Status: Resolved (4) Status asthmaticus Code(s): J45.902 - UNSPECIFIED ASTHMA WITH STATUS ASTHMATICUS Status: Acute Qualifiers: Asthma severity: severe Asthma persistence: persistent Qualified Code(s) : J45.52 - Severe persistent asthma with status asthmaticus Comment: Improved with supportive mgmt, see #1, Marie (5) Tachycardia Code(s): R00.0 - TACHYCARDIA, UNSPECIFIED Status: Acute (6) Asthma Code(s): J45.909 - UNSPECIFIED ASTHMA, UNCOMPLICATED Status: Chronic Qualifiers: Asthma severity: mild Asthma persistence: intermittent Asthma complication type: with status asthmaticus Qualified Code(s): J45.22 - Mild intermittent asthma with status asthmaticus - Plan cont current plan of care, PT/OT, clinical social work therapist, respiratory therapy * .
[2018-07-22] MEDS ORDERED: Pancrelipase DR 12000 1 CAP FS PRN (14:44)
[2018-07-22] MEDS ORDERED: Sodium Bicarbonate Tab 325 MG TAB PER TUBE PRN (14:44)
[2018-07-22] MEDS: Propofol 1,000 MG/100 ML VIAL IV PRN ×2 (16:52→19:56)
[2018-07-22] MEDS: guaiFENesin ER 600 MG TAB PO SCH (20:00)
[2018-07-22] MEDS: Montelukast Sodium 10 mg Tablet PO SCH (20:00)
[2018-07-23] MEDS: Budesonide 0.25 MG/2 ML NEB INH SCH ×5 (00:54→22:05)
[2018-07-23 04:01] LABS: Band 6 % (5-11); Hemoglobin 13.6 g/dL (12.0-16.0); Lymphocytes 6 % (21-51); MDiff Complete? YES; Mean Corpuscular HGB CONC 32.2 g/dL (32.0-36.0); Mean Corpuscular Hemoglobin 30.3 pg (27.0-31.0); Mean Corpuscular Volume 93.9 fL (78.0-98.0); Mean Platelet Volume 8.4 fL (7.4-10.4); Monocytes 3 % (0-10); Neutrophil 84 % (42-75); Platelet Count 160 thou/uL (130-400); RBC Distribution Width 11.9 % (11.5-14.5); Reactive Lymphocytes 1 % (0-10); Red Blood Cell (RBC) Count 4.49 mill/uL (4.20-5.40); White Blood Cell (WBC) Count 13.6 thou/uL (4.8-10.8)
[2018-07-23] MEDS: methylPREDNISolone Sod Succ/PF 125 MG/2 ML VIAL IVP SCH ×4 (05:45→23:47)
[2018-07-23 06:56] LABS: Actual Bicarbonate (HCO3a) 32.3 mEq/L (22-28); Base Excess (BEa) 8.3 mEq/L (-2.0 to +3.0); CO2 Tension 42.2 mmHg (35.0-45.0); Carboxyhemoglobin (COHb) 1.5 gm% (0.0-3.0); Hemoglobin (Hb) 13.3 g/dL (12.0-16.0)
[2018-07-23 07:12] LABS: O2 Tension (PaO2) 44.9 mmHg (> 80.0); Puncture Site RR
--- NOTE | 2018-07-23 09:06 | PRG ---
DATE OF SERVICE: 07/23/2018 This is a 67-year-old female who is vented, intubated, sedated. PHYSICAL EXAMINATION: VITAL SIGNS: Temperature is 99. Blood pressure is 112/49, sats 100%, respirations 19. CHEST: Chest reveals decreased breath sounds, prolonged expiration, minimal wheezing. CARDIAC: Normal S1, S2. ABDOMEN: Soft, no masses. White count is only 13,000, H&H 13 and 42. Blood gas; pO2 was 44, pCO2 42%, 50 on 21% FiO2. She is now 132. IMPRESSION: 1. Respiratory failure. 2. End-stage chronic obstructive pulmonary disease. 3. Encephalopathy. PLAN: At this stage, I am not sure she is weanable. Continue steroids, nebulizer treatments. One-half critical care time.
--- NOTE | 2018-07-23 09:24 | RAD ---
SINGLE VIEW OF THE CHEST: Comparison: 07-21-18 History: Ventilator patient with respiratory failure. FINDINGS: Single view of the chest shows normal sized cardiomediastinal silhouette. The lines and tubes are unc hanged in position. Hyperexpanded lung is likely secondary to COPD. IMPRESSION: No evidence of acute cardiopulmonary disease. POS: [facility]
[2018-07-23] MEDS ORDERED: DC Sedation Protocol FS ONE (09:56)
[2018-07-23] MEDS: guaiFENesin ER 600 MG TAB PO SCH ×2 (10:01→20:53)
[2018-07-23] MEDS: Enoxaparin Sodium 40 MG/0.4 ML SYRINGE SC SCH (10:02)
[2018-07-23] MEDS: Pantoprazole 40 MG VIAL IVP SCH (10:02)
[2018-07-23] MEDS: cefTRIAXone\\ROCEPHIN 1 GM in Sodium Chloride 0.9% 100 ML IVPB SCH (11:32)
[2018-07-23] MEDS: Sodium Chloride 0.45% 1,000 ML IV SCH (14:50)
[2018-07-23] MEDS: Mometasone/Formoterol 120 PUFF INHALER INH SCH (18:32)
[2018-07-23] MEDS: Montelukast Sodium 10 mg Tablet PO SCH (20:52)
[2018-07-24 04:46] LABS: Anion Gap 10 mmol/L (10-20); BUN (Urea Nitrogen) 21 mg/dL (9.8-20.1); Calc. Creatinine Clearance 69 mL/min (70-130); Calcium 8.4 mg/dL (7.8-10.44); Carbon Dioxide 33 mmol/L (23-31); Chloride 104 mmol/L (98-107); Estimated GFR-MDRD Greater than 90; Glucose 134 mg/dL (80-115); Magnesium 2.3 mg/dL (1.6-2.6); Potassium 3.6 mmol/L (3.5-5.1); Sodium 143 mmol/L (136-145)
[2018-07-24] MEDS: Sodium Chloride 0.45% 1,000 ML IV SCH ×3 (05:05→23:56)
[2018-07-24] MEDS: methylPREDNISolone Sod Succ/PF 125 MG/2 ML VIAL IVP SCH (05:16)
[2018-07-24 06:21] LABS: Hemoglobin 13.4 g/dL (12.0-16.0); Mean Corpuscular HGB CONC 31.1 g/dL (32.0-36.0); Mean Corpuscular Hemoglobin 29.4 pg (27.0-31.0); Mean Corpuscular Volume 94.6 fL (78.0-98.0); Mean Platelet Volume 8.5 fL (7.4-10.4); Platelet Count 161 thou/uL (130-400); RBC Distribution Width 11.9 % (11.5-14.5); Red Blood Cell (RBC) Count 4.57 mill/uL (4.20-5.40); White Blood Cell (WBC) Count 13.3 thou/uL (4.8-10.8)
[2018-07-24 06:22] LABS: Band 21 % (5-11); Lymphocytes 5 % (21-51); MDiff Complete? YES; Monocytes 3 % (0-10); Neutrophil 71 % (42-75)
[2018-07-24] MEDS: Budesonide 0.25 MG/2 ML NEB INH SCH ×2 (06:30→18:28)
[2018-07-24] MEDS: Mometasone/Formoterol 120 PUFF INHALER INH SCH ×2 (06:56→18:29)
[2018-07-24] MEDS: guaiFENesin ER 600 MG TAB PO SCH ×2 (08:49→20:35)
[2018-07-24] MEDS: Enoxaparin Sodium 40 MG/0.4 ML SYRINGE SC SCH (08:49)
[2018-07-24] MEDS: Doxycycline 100 MG CAP PO SCH ×2 (08:49→20:34)
--- NOTE | 2018-07-24 08:51 | RAD ---
UPRIGHT PORTABLE CHEST ONE VIEW: History: 67-year-old female with history of respiratory insufficiency. Comparison: 07-23-18 FINDINGS: NG tube and endotracheal tubes have been removed. Monitor leads overlie the chest. No confluent pneum onia, overt edema, or pleural effusion. IMPRESSION: Stable bilateral chronic lung changes. No significant new process. POS: [facility]
[2018-07-24] MEDS ORDERED: Budesonide 0.25 MG/2 ML NEB INH SCH (09:00)
[2018-07-24 12:51] VITALS: BMI 21.8
--- NOTE | 2018-07-24 15:08 | PRG ---
DATE OF SERVICE: 07/24/2018 SUBJECTIVE: This morning, she is better, less short of breath. She was extubated without any problem. She is coughing, but her sputum is relatively clear. Denies any chest pain. OBJECTIVE: VITAL SIGNS: Her sats are 95 on 2 liters, pulse 103, bp 130\70, respirations 14. CHEST: Revealed a prolonged expiration, minimal wheezing. CARDIAC: Normal S1 and S2. No gallops. ABDOMEN: Soft, no masses. LABORATORY DATA: Chest x-ray, this morning, shows marked hyperinflation, but no acute infiltrates to be seen. Her white count has decreased to 13,000, H and H 13 and 43, platelet count is normal. Electrolytes are normal. IMPRESSION: Chronic obstructive pulmonary disease exacerbation, bronchitis, respiratory failure. PLAN: P.o. antibiotics, nebulizer treatments, steroids. She was transferred to a monitored bed. PT and supportive care. [id number] critical care time. [facility]
[2018-07-24] MEDS: Montelukast Sodium 10 mg Tablet PO SCH (20:35)
[2018-07-25] MEDS ORDERED: Budesonide 0.5 MG/2 ML NEB ONE (06:54)
[2018-07-25] MEDS: Mometasone/Formoterol 120 PUFF INHALER INH SCH ×2 (07:00→18:51)
[2018-07-25] MEDS: Budesonide 0.25 MG/2 ML NEB INH SCH (07:04)
[2018-07-25] MEDS: Budesonide 0.5 MG/2 ML NEB NEB SCH ×2 (07:12→18:50)
[2018-07-25] MEDS: Enoxaparin Sodium 40 MG/0.4 ML SYRINGE SC SCH (09:15)
[2018-07-25] MEDS: Doxycycline 100 MG CAP PO SCH ×2 (09:15→19:34)
[2018-07-25] MEDS: predniSONE 20 MG TAB PO SCH ×2 (09:15→19:35)
[2018-07-25] MEDS: guaiFENesin ER 600 MG TAB PO SCH ×2 (09:15→19:34)
--- NOTE | 2018-07-25 09:24 | PRG ---
DATE OF SERVICE: 07/25/2018 SUBJECTIVE: This morning, the patient is awake, alert and responsive, in no distress. OBJECTIVE: VITAL SIGNS: Sats are on 2 liters, respiratory rate 18, temperature 97, blood pressure 160/75. CHEST: Reveals decreased breath sounds without any wheezing. CARDIAC: Normal S1, S2, no gallops. ABDOMEN: Soft, no masses. X-RAY FINDINGS: Chest x-ray yesterday shows no acute infiltrates, hyperinflation. IMPRESSION: Chronic obstructive pulmonary disease, asthma exacerbation, respiratory failure, much im proved. PLAN: P.o. antibiotics, p.o. medications, PT, supportive care. Hopefully, home in the next 24-48 ho hans.
[2018-07-25] MEDS: Montelukast Sodium 10 mg Tablet PO SCH (19:34)
[2018-07-26] MEDS: Mometasone/Formoterol 120 PUFF INHALER INH SCH ×2 (06:52→19:09)
[2018-07-26] MEDS: Budesonide 0.5 MG/2 ML NEB NEB SCH ×2 (06:53→19:03)
[2018-07-26] MEDS: predniSONE 20 MG TAB PO SCH ×2 (08:01→20:13)
[2018-07-26] MEDS: Doxycycline 100 MG CAP PO SCH ×2 (08:01→20:13)
[2018-07-26] MEDS: guaiFENesin ER 600 MG TAB PO SCH ×2 (08:01→20:13)
[2018-07-26] MEDS: Enoxaparin Sodium 40 MG/0.4 ML SYRINGE SC SCH (08:02)
--- NOTE | 2018-07-26 09:09 | PRG ---
DATE OF SERVICE: 07/26/2018 SUBJECTIVE: A 67-year-old female, this morning she is better, less short of breath. OBJECTIVE: VITAL SIGNS: Sats are 95% on 2 liters, temperature is 97, blood pressure 106/50, respiratory rate 20 . CHEST: Reveals decreased breath sounds, no wheezing. CARDIAC: Normal S1, S2. No gallops. ABDOMEN: Soft, no masses. IMPRESSION: Chronic obstructive pulmonary disease, bronchial asthma with exacerbation, improved bron irmais . PLAN: Continue PT and supportive care. Hopefully, if remain stable, she can be discharged home in the next several days.
[2018-07-26] MEDS: Montelukast Sodium 10 mg Tablet PO SCH (20:13)
[2018-07-27] MEDS: Budesonide 0.5 MG/2 ML NEB NEB SCH ×2 (07:20→18:32)
[2018-07-27] MEDS: Mometasone/Formoterol 120 PUFF INHALER INH SCH ×2 (07:21→18:32)
[2018-07-27] MEDS: guaiFENesin ER 600 MG TAB PO SCH ×2 (08:20→20:28)
[2018-07-27] MEDS: Doxycycline 100 MG CAP PO SCH ×2 (08:20→20:28)
[2018-07-27] MEDS: predniSONE 20 MG TAB PO SCH ×2 (08:20→20:28)
[2018-07-27] MEDS: Enoxaparin Sodium 40 MG/0.4 ML SYRINGE SC SCH (08:22)
--- NOTE | 2018-07-27 14:27 | PDOC.PN ---
- Subjective Encounter Start Date: 07/24/18 Encounter Start Time: 09:40 Pt seen and examined, chart reviewed in its entirety, this is my first visit with this patient follow up for: acute asthma exacerbation with acute hypoxemic and hypercapneic respiratory failure, extubated, and doing fairly well No F/C, no N/V/D/C, no CP or SOB All systems reviewed and neg x as per HPI - Objective MAR Reviewed: Yes Vital Signs & Weight: Vital Signs (12 hours) Temp Pulse Resp BP Pulse Ox Pulse Ox Pulse Ox 07/27/18 11:05 91 16 91 L 07/27/18 11:03 98.2 F 95 16 110/71 97 07/27/18 08:57 92 L 98 07/27/18 07:29 97.7 F 84 18 97/62 93 L 07/27/18 07:23 94 L 07/27/18 07:22 94 L 07/27/18 07:21 92 20 94 L 07/27/18 07:20 92 20 94 L 07/27/18 07:15 92 20 94 L 07/27/18 04:00 98.3 F 86 20 106/88 100 Weight Admit Weight 114 lb Weight 112 lb 9.6 oz Most Recent Monitor Data Heart Rate from ECG 96 NIBP 119/71 NIBP BP-Mean 87 Respiration from ECG 16 SpO2 100 I&O: 07/26/18 07/27/18 07/28/18 06:59 06:59 05:59 Intake Total 1417 2060 240 Output Total 3700 Balance -2283 2060 240 Result Diagrams: 07/24/18 03:41 07/24/18 03:41 Dx/Plan (1) Uncompensated respiratory acidosis Code(s): E87.2 - ACIDOSIS Status: Resolved Comment: resolved (2) Acute respiratory failure Code(s): J96.00 - ACUTE RESPIRATORY FAILURE, UNSP W HYPOXIA OR HYPERCAPNIA Status: Acute Qualifiers: Respiratory failure complication: hypoxia Qualified Code(s): J96.01 - Acute respiratory failure with hypoxia Comment: Improved with supportive measures, continue Prednisone, adjust abx (3) Elevated troponin Code(s): R74.8 - ABNORMAL LEVELS OF OTHER SERUM ENZYMES Status: Resolved (4) Status asthmaticus Code(s): J45.902 - UNSPECIFIED ASTHMA WITH STATUS ASTHMATICUS Status: Acute Qualifiers: Asthma severity: severe Asthma persistence: persistent Qualified Code(s) : J45.52 - Severe persistent asthma with status asthmaticus Comment: Improved with supportive mgmt, see #1, Marie (5) Tachycardia Code(s): R00.0 - TACHYCARDIA, UNSPECIFIED Status: Acute (6) Asthma Code(s): J45.909 - UNSPECIFIED ASTHMA, UNCOMPLICATED Status: Chronic Qualifiers: Asthma severity: mild Asthma persistence: intermittent Asthma complication type: with status asthmaticus Qualified Code(s): J45.22 - Mild intermittent asthma with status asthmaticus - Plan cont current plan of care, respiratory therapy * .
--- NOTE | 2018-07-27 14:30 | PDOC.PN ---
- Subjective Encounter Start Date: 07/25/18 Encounter Start Time: 10:30 follow up for: acute asthma exacerbation with acute hypoxemic and hypercapneic respiratory failure, extubated. No F/C, no N/V/D/C, no CP or SOB All systems reviewed and neg x as per HPI - Objective MAR Reviewed: Yes Vital Signs & Weight: Vital Signs (12 hours) Temp Pulse Resp BP Pulse Ox Pulse Ox Pulse Ox 07/27/18 11:05 91 16 91 L 07/27/18 11:03 98.2 F 95 16 110/71 97 07/27/18 08:57 92 L 98 07/27/18 07:29 97.7 F 84 18 97/62 93 L 07/27/18 07:23 94 L 07/27/18 07:22 94 L 07/27/18 07:21 92 20 94 L 07/27/18 07:20 92 20 94 L 07/27/18 07:15 92 20 94 L 07/27/18 04:00 98.3 F 86 20 106/88 100 Weight Admit Weight 114 lb Weight 112 lb 9.6 oz Most Recent Monitor Data Heart Rate from ECG 96 NIBP 119/71 NIBP BP-Mean 87 Respiration from ECG 16 SpO2 100 I&O: 07/26/18 07/27/18 07/28/18 06:59 06:59 05:59 Intake Total 1417 2060 240 Output Total 3700 Balance -2283 2060 240 Result Diagrams: 07/24/18 03:41 07/24/18 03:41 Phys Exam - Physical Examination Constitutional: NAD HEENT: PERRLA, moist MMs, sclera anicteric, oral pharynx no lesions Neck: no nodes, no JVD, supple, full ROM Respiratory: no rales, no rhonchi, wheezing present Cardiovascular: RRR, no significant murmur, no rub Gastrointestinal: soft, non-tender, no distention, positive bowel sounds Musculoskeletal: no edema Neurological: non-focal, normal sensation, moves all 4 limbs Lymphatic: no nodes Psychiatric: normal affect, A&O x 3 Skin: no rash, normal turgor, cap refill <2 seconds Dx/Plan (1) Uncompensated respiratory acidosis Code(s): E87.2 - ACIDOSIS Status: Resolved Comment: resolved (2) Acute respiratory failure Code(s): J96.00 - ACUTE RESPIRATORY FAILURE, UNSP W HYPOXIA OR HYPERCAPNIA Status: Acute Qualifiers: Respiratory failure complication: hypoxia Qualified Code(s): J96.01 - Acute respiratory failure with hypoxia Comment: Improved with supportive measures, continue Prednisone, adjust abx (3) Elevated troponin Code(s): R74.8 - ABNORMAL LEVELS OF OTHER SERUM ENZYMES Status: Resolved (4) Status asthmaticus Code(s): J45.902 - UNSPECIFIED ASTHMA WITH STATUS ASTHMATICUS Status: Acute Qualifiers: Asthma severity: severe Asthma persistence: persistent Qualified Code(s) : J45.52 - Severe persistent asthma with status asthmaticus Comment: Improved with supportive mgmt, see #1, Marie (5) Tachycardia Code(s): R00.0 - TACHYCARDIA, UNSPECIFIED Status: Resolved (6) Asthma Code(s): J45.909 - UNSPECIFIED ASTHMA, UNCOMPLICATED Status: Chronic Qualifiers: Asthma severity: mild Asthma persistence: intermittent Asthma complication type: with status asthmaticus Qualified Code(s): J45.22 - Mild intermittent asthma with status asthmaticus - Plan cont current plan of care, PT/OT, case management social worker, respiratory therapy * . transferred to [facility], doing better daily
--- NOTE | 2018-07-27 14:32 | PDOC.PN ---
- Subjective Encounter Start Date: 07/26/18 Encounter Start Time: 11:15 follow up for: acute asthma exacerbation with acute hypoxemic and hypercapneic respiratory failure, inow extubated No F/C, no N/V/D/C, no CP or SOB, no wheezing today, sriram nebs. walking to door and back with PT, some All systems reviewed and neg x as per HPI - Objective MAR Reviewed: Yes Vital Signs & Weight: Vital Signs (12 hours) Temp Pulse Resp BP Pulse Ox Pulse Ox Pulse Ox 07/27/18 11:05 91 16 91 L 07/27/18 11:03 98.2 F 95 16 110/71 97 07/27/18 08:57 92 L 98 07/27/18 07:29 97.7 F 84 18 97/62 93 L 07/27/18 07:23 94 L 07/27/18 07:22 94 L 07/27/18 07:21 92 20 94 L 07/27/18 07:20 92 20 94 L 07/27/18 07:15 92 20 94 L 07/27/18 04:00 98.3 F 86 20 106/88 100 Weight Admit Weight 114 lb Weight 112 lb 9.6 oz Most Recent Monitor Data Heart Rate from ECG 96 NIBP 119/71 NIBP BP-Mean 87 Respiration from ECG 16 SpO2 100 I&O: 07/26/18 07/27/18 07/28/18 06:59 06:59 05:59 Intake Total 1417 2060 240 Output Total 3700 Balance -2283 2060 240 Result Diagrams: 07/24/18 03:41 07/24/18 03:41 Phys Exam - Physical Examination Constitutional: NAD HEENT: PERRLA, moist MMs, sclera anicteric, oral pharynx no lesions Neck: no nodes, no JVD, supple, full ROM Respiratory: no wheezing, no rales, no rhonchi, clear to auscultation bilateral Cardiovascular: RRR, no significant murmur, no rub Gastrointestinal: soft, non-tender, no distention, positive bowel sounds Musculoskeletal: no edema Neurological: non-focal, normal sensation, moves all 4 limbs Lymphatic: no nodes Psychiatric: normal affect, A&O x 3 Skin: no rash, normal turgor, cap refill <2 seconds Dx/Plan (1) Uncompensated respiratory acidosis Code(s): E87.2 - ACIDOSIS Status: Resolved Comment: resolved (2) Acute respiratory failure Code(s): J96.00 - ACUTE RESPIRATORY FAILURE, UNSP W HYPOXIA OR HYPERCAPNIA Status: Acute Qualifiers: Respiratory failure complication: hypoxia Qualified Code(s): J96.01 - Acute respiratory failure with hypoxia Comment: Improved with supportive measures, continue Prednisone, adjust abx (3) Elevated troponin Code(s): R74.8 - ABNORMAL LEVELS OF OTHER SERUM ENZYMES Status: Resolved (4) Status asthmaticus Code(s): J45.902 - UNSPECIFIED ASTHMA WITH STATUS ASTHMATICUS Status: Acute Qualifiers: Asthma severity: severe Asthma persistence: persistent Qualified Code(s) : J45.52 - Severe persistent asthma with status asthmaticus Comment: Improved with supportive mgmt, see #1, Marie (5) Tachycardia Code(s): R00.0 - TACHYCARDIA, UNSPECIFIED Status: Resolved (6) Asthma Code(s): J45.909 - UNSPECIFIED ASTHMA, UNCOMPLICATED Status: Chronic Qualifiers: Asthma severity: mild Asthma persistence: intermittent Asthma complication type: with status asthmaticus Qualified Code(s): J45.22 - Mild intermittent asthma with status asthmaticus - Plan cont current plan of care, PT/OT, respiratory therapy, out of bed/ambulate * .
--- NOTE | 2018-07-27 14:33 | PDOC.PN ---
- Subjective Encounter Start Date: 07/27/18 Encounter Start Time: 10:55 follow up for: acute asthma exacerbation with acute hypoxemic and hypercapneic respiratory failure frrling much better today, made it 500 feet with PT No F/C, no N/V/D/C, no CP or SOB All systems reviewed and neg x as per HPI - Objective MAR Reviewed: Yes Vital Signs & Weight: Vital Signs (12 hours) Temp Pulse Resp BP Pulse Ox Pulse Ox Pulse Ox 07/27/18 11:05 91 16 91 L 07/27/18 11:03 98.2 F 95 16 110/71 97 07/27/18 08:57 92 L 98 07/27/18 07:29 97.7 F 84 18 97/62 93 L 07/27/18 07:23 94 L 07/27/18 07:22 94 L 07/27/18 07:21 92 20 94 L 07/27/18 07:20 92 20 94 L 07/27/18 07:15 92 20 94 L 07/27/18 04:00 98.3 F 86 20 106/88 100 Weight Admit Weight 114 lb Weight 112 lb 9.6 oz Most Recent Monitor Data Heart Rate from ECG 96 NIBP 119/71 NIBP BP-Mean 87 Respiration from ECG 16 SpO2 100 I&O: 07/26/18 07/27/18 07/28/18 06:59 06:59 05:59 Intake Total 1417 2060 240 Output Total 3700 Balance -2283 2060 240 Result Diagrams: 07/24/18 03:41 07/24/18 03:41 Phys Exam - Physical Examination Constitutional: NAD HEENT: PERRLA, moist MMs, sclera anicteric, oral pharynx no lesions Neck: no nodes, no JVD, supple, full ROM Respiratory: no wheezing, no rales, no rhonchi, clear to auscultation bilateral Cardiovascular: RRR, no significant murmur, no rub Gastrointestinal: soft, non-tender, no distention, positive bowel sounds Musculoskeletal: no edema Neurological: non-focal, normal sensation, moves all 4 limbs Lymphatic: no nodes Psychiatric: normal affect, A&O x 3 Skin: no rash, normal turgor, cap refill <2 seconds Dx/Plan (1) Uncompensated respiratory acidosis Code(s): E87.2 - ACIDOSIS Status: Resolved Comment: resolved (2) Acute respiratory failure Code(s): J96.00 - ACUTE RESPIRATORY FAILURE, UNSP W HYPOXIA OR HYPERCAPNIA Status: Acute Qualifiers: Respiratory failure complication: hypoxia Qualified Code(s): J96.01 - Acute respiratory failure with hypoxia Comment: Improved with supportive measures, continue Prednisone, adjust abx (3) Elevated troponin Code(s): R74.8 - ABNORMAL LEVELS OF OTHER SERUM ENZYMES Status: Resolved (4) Status asthmaticus Code(s): J45.902 - UNSPECIFIED ASTHMA WITH STATUS ASTHMATICUS Status: Acute Qualifiers: Asthma severity: severe Asthma persistence: persistent Qualified Code(s) : J45.52 - Severe persistent asthma with status asthmaticus Comment: Improved with supportive mgmt, see #1, Marie (5) Tachycardia Code(s): R00.0 - TACHYCARDIA, UNSPECIFIED Status: Resolved (6) Asthma Code(s): J45.909 - UNSPECIFIED ASTHMA, UNCOMPLICATED Status: Chronic Qualifiers: Asthma severity: mild Asthma persistence: intermittent Asthma complication type: with status asthmaticus Qualified Code(s): J45.22 - Mild intermittent asthma with status asthmaticus - Plan cont current plan of care, PT/OT, respiratory therapy, out of bed/ambulate * . to floor in AM if stable, wena O2 as tolerated
--- NOTE | 2018-07-27 17:02 | PRG ---
DATE OF SERVICE: 07/27/2018 SUBJECTIVE: Paula Reagan is in no distress. She says she is feeling well. OBJECTIVE: VITAL SIGNS: She has heart rate in the 80s-90s, respiratory rate is 20, oximetry is 91 on 3 liters, blood pressure 122/60. LUNGS: Clear and distant. HEART: Regular rhythm. ABDOMEN: Soft. LABORATORY: There is no new lab. IMPRESSION: 1. Chronic persistent asthma/chronic obstructive pulmonary disease, clinically stable. 2. History of intubation in the past. Hopefully, she will be a candidate for discharge tomorrow. She appears to be medically stable.
[2018-07-27] MEDS: Montelukast Sodium 10 mg Tablet PO SCH (20:28)
[2018-07-28 04:12] LABS: Band 1 % (5-11); Hemoglobin 15.3 g/dL (12.0-16.0); Lymphocytes 11 % (21-51); MDiff Complete? YES; Mean Corpuscular HGB CONC 30.4 g/dL (32.0-36.0); Mean Corpuscular Hemoglobin 28.7 pg (27.0-31.0); Mean Corpuscular Volume 94.3 fL (78.0-98.0); Mean Platelet Volume 7.9 fL (7.4-10.4); Monocytes 2 % (0-10); Neutrophil 86 % (42-75); PLT Morphology Comment Appears Adequate; Platelet Count 204 thou/uL (130-400); Polychromasia SLIGHT = 2-3 cells (100X) (0-2/hpf); RBC Distribution Width 12.1 % (11.5-14.5); Red Blood Cell (RBC) Count 5.35 mill/uL (4.20-5.40); White Blood Cell (WBC) Count 11.2 thou/uL (4.8-10.8)
[2018-07-28 04:13] LABS: Anion Gap 16 mmol/L (10-20); BUN (Urea Nitrogen) 20 mg/dL (9.8-20.1); Calc. Creatinine Clearance 61 mL/min (70-130); Calcium 9.1 mg/dL (7.8-10.44); Carbon Dioxide 27 mmol/L (23-31); Chloride 99 mmol/L (98-107); Estimated GFR-MDRD 81; Glucose 122 mg/dL (80-115); Magnesium 2.3 mg/dL (1.6-2.6); Potassium 4.4 mmol/L (3.5-5.1); Sodium 138 mmol/L (136-145)
[2018-07-28] MEDS: Budesonide 0.5 MG/2 ML NEB NEB SCH (07:25)
[2018-07-28] MEDS: Mometasone/Formoterol 120 PUFF INHALER INH SCH (07:25)
[2018-07-28] MEDS: Doxycycline 100 MG CAP PO SCH (09:04)
[2018-07-28] MEDS: guaiFENesin ER 600 MG TAB PO SCH (09:04)
[2018-07-28] MEDS: Enoxaparin Sodium 40 MG/0.4 ML SYRINGE SC SCH (09:04)
[2018-07-28] MEDS: predniSONE 20 MG TAB PO SCH (09:05)
--- NOTE | 2018-07-28 11:49 | PDOC.PN ---
- Subjective Encounter Start Date: 07/28/18 Encounter Start Time: 10:30 follow up for: acute asthma exacerbation with acute hypoxemic and hypercapneic respiratory failure feeling much better today, made it 500 feet with PT yesterday. down to 1L now, trying to wean further/. wants to go home. No F/C, no N/V/D/C, no CP or SOB All systems reviewed and neg x as per HPI - Objective MAR Reviewed: Yes Vital Signs & Weight: Vital Signs (12 hours) Temp Pulse Resp BP Pulse Ox 07/28/18 10:52 95 14 07/28/18 08:00 96 07/28/18 07:33 98.0 F 93 19 103/75 96 07/28/18 07:26 91 12 07/28/18 03:53 97.5 F L 109 H 15 95/68 93 L 07/28/18 02:46 95 20 92 L Weight Admit Weight 114 lb Weight 110 lb 12.8 oz Most Recent Monitor Data Heart Rate from ECG 96 NIBP 119/71 NIBP BP-Mean 87 Respiration from ECG 16 SpO2 100 I&O: 07/27/18 07/28/18 07/29/18 07:59 06:59 06:59 Intake Total Balance Result Diagrams: 07/28/18 03:32 07/28/18 03:32 Phys Exam - Physical Examination Constitutional: NAD HEENT: PERRLA, moist MMs, sclera anicteric, oral pharynx no lesions Neck: no nodes, no JVD, supple, full ROM Respiratory: no wheezing, no rales, no rhonchi, clear to auscultation bilateral Cardiovascular: RRR, no significant murmur, no rub Gastrointestinal: soft, non-tender, no distention, positive bowel sounds Musculoskeletal: no edema Neurological: non-focal, normal sensation, moves all 4 limbs Lymphatic: no nodes Psychiatric: normal affect, A&O x 3 Skin: no rash, normal turgor, cap refill <2 seconds Dx/Plan (1) Acute respiratory failure Code(s): J96.00 - ACUTE RESPIRATORY FAILURE, UNSP W HYPOXIA OR HYPERCAPNIA Status: Acute Qualifiers: Respiratory failure complication: hypoxia Qualified Code(s): J96.01 - Acute respiratory failure with hypoxia Comment: Improved with supportive measures, continue Prednisone, adjust abx (2) Status asthmaticus Code(s): J45.902 - UNSPECIFIED ASTHMA WITH STATUS ASTHMATICUS Status: Resolved Qualifiers: Asthma severity: severe Asthma persistence: persistent Qualified Code(s) : J45.52 - Severe persistent asthma with status asthmaticus Comment: Improved with supportive mgmt, see #1, Marie (3) Tachycardia Code(s): R00.0 - TACHYCARDIA, UNSPECIFIED Status: Resolved (4) Asthma Code(s): J45.909 - UNSPECIFIED ASTHMA, UNCOMPLICATED Status: Chronic Qualifiers: Asthma severity: mild Asthma persistence: intermittent Asthma complication type: with status asthmaticus Qualified Code(s): J45.22 - Mild intermittent asthma with status asthmaticus (5) Uncompensated respiratory acidosis Code(s): E87.2 - ACIDOSIS Status: Resolved Comment: resolved (6) Elevated troponin Code(s): R74.8 - ABNORMAL LEVELS OF OTHER SERUM ENZYMES Status: Resolved - Plan cont current plan of care, PT/OT, social media assistant, respiratory therapy, out of bed/ambulate * . home when off o2 and ok with pulm
[2018-07-28 11:53] VITALS: BP 107/74; TEMP 97.8
--- NOTE | 2018-07-28 17:46 | PRG ---
DATE OF SERVICE: 07/28/2018 SUBJECTIVE: Ms. Reagan says she feels back to normal. Oximetry on room air is 96. OBJECTIVE: VITAL SIGNS: Have been stable. Her heart rate is 92, she is afebrile, respiratory rate is 17, oxime try is 96 on room air, blood pressure 107/74. LUNGS: Completely clear. HEART: Regular rhythm. ABDOMEN: Soft. IMPRESSION: Chronic obstructive pulmonary disease with asthma. PLAN: Discharge home with prednisone 40 mg for 4 more days, 20 mg for 8 days and 10 mg for 8 days. I have refilled her nebulizer and her rescue inhaler. I have written for a week of doxycycline. She will follow up in our office in 10-14 days.
--- NOTE | 2018-08-05 15:47 | EKG ---
Test Reason : SOB Blood Pressure : / mmHG Vent. Rate : 135 BPM Atrial Rate : 135 BPM P-R Int : 114 ms QRS Dur : 080 ms QT Int : 282 ms P-R-T Axes : 076 063 083 degrees QTc Int : 423 ms Sinus tachycardia Confirmed by CAMACHO WHITEHEAD ([id number]), sound editor FELIX OWEN ([id number]) on 08/05/2018 3:47:27 PM Referred By: Confirmed By:CAMACHO WHITEHEAD
== END 2018-07-28 15:29 | disposition home or self-care (01) | DRG 208 ==
LOC: ERS 10:53 → CCU 14:20 → IMCU/EMU 07-24 18:30
PROVIDERS: ADMIT Internal Medicine; ATTEND Internal Medicine
PROC: 5A1945Z Respiratory Ventilation, 24-96 Consecutive Hours (ICD-10-PCS; principal; 2018-07-20)
PROC: 0BH17EZ Insertion of Endotracheal Airway into Trachea, Via Natural or Artificial Opening (ICD-10-PCS; 2018-07-20)
DX: J96.01 Acute respiratory failure with hypoxia (principal); E87.2 Acidosis; J44.1 Chronic obstructive pulmonary disease with (acute) exacerbation; J45.22 Mild intermittent asthma with status asthmaticus; G93.40 Encephalopathy, unspecified; J96.02 Acute respiratory failure with hypercapnia; R74.8 Abnormal levels of other serum enzymes; R00.0 Tachycardia, unspecified; Z79.2 Long term (current) use of antibiotics; Z79.51 Long term (current) use of inhaled steroids
CPT/HCPCS: 31500; 36415; 51702; 71045; 80048; 80053; 82553; 82805; 83605; 83735; 84484; 85025; 90471; 90662; 93005; 94002; 94003; 94640; 94660; 94760; 96365; 96374; A4216; C9113; G0008; G8978-GP-CL; G8979-GP-CI; G8996-GN-CJ; G8997-GN-CJ; J0696; J1650; J2060; J2250; J2704; J2920; J2930; J3475; J7050; J7506; J7620; J7626